=== PATIENT | male | born 1945 | race Caucasian/White ===

== ENCOUNTER → 2016-06-10 | Outpatient (CLI) | payer MEDICARE | END | disposition home or self-care (01) | LOC: LABWHC1 10:41 | PROVIDERS: ATTEND Orthopaedic Surgery Hand Surgery | DX: M65.311 Trigger thumb, right thumb (principal) | CPT/HCPCS: 36415; 93005 ==

== ENCOUNTER 2020-03-09 09:36 | Observation (INO) | payer MEDICARE ==
--- NOTE | 2020-03-09 10:33 | ED ---
Lower Extremity Injury HPI - General Chief Complaint: Extremity Injury, Lower Stated Complaint: toe nail issues, sent from [email or web address] Time Seen by Provider: 03/09/20 09:49 Source: patient Mode of arrival: ambulatory Limitations: no limitations - History of Present Illness Initial Comments: 74-year-old male presenting today for chief complaint of left great toe pain, redness. Patient states that he stubbed his toe approximately week ago however he is dosed increasing redness swelling and pain he is concerned about infection as he is diabetic. Patient denies a fever chills general malaise or uncontrolled blood glucose levels. Patient is no additional complaints upon arrival patient appears well nontoxic however obvious significant redness to the left great toe, partially avulsed left great toenail. - Related Data Home Medications Medication Instructions Recorded Confirmed Aspirin 325 mg PO DAILY 07/31/15 03/09/20 Pravastatin Sodium [Pravachol] 10 mg PO HS 07/31/15 03/09/20 hydrALAZINE HCL [Apresoline] 50 mg PO BID 07/31/15 03/09/20 lisinopriL 40 mg PO DAILY 07/31/15 03/09/20 HYDROcodone/APAP 10-325MG [[place] 1 tab PO TID PRN 03/09/20 03/09/20 10-325] NIFEdipine XL [Procardia Xl] 60 mg PO DAILY 03/09/20 03/09/20 Pioglitazone [Actos] 30 mg PO DAILY 03/09/20 03/09/20 Allergies Allergy/AdvReac Type Severity Reaction Status Date / Time No Known Allergies Allergy Verified 03/09/20 10:46 Review of Systems ROS Statement: Those systems with pertinent positive or pertinent negative responses have been documented in the HPI. ROS Other: All systems not noted in ROS Statement are negative. Past Medical History Past Medical History: Cancer, Diabetes Mellitus, Hyperlipidemia, Hypertension, Sleep Apnea/CPAP/BIPAP Additional Past Medical History / Comment(s): hx. kidney cancer History of Any Multi-Drug Resistant Organisms: None Reported Past Surgical History: Orthopedic Surgery Additional Past Surgical History / Comment(s): nephrectomy, repair fx. left ankle, repair fx. right leg Past Anesthesia/Blood Transfusion Reactions: No Reported Reaction Past Psychological History: No Psychological Hx Reported Smoking Status: Never smoker Past Alcohol Use History: None Reported Past Drug Use History: None Reported General Exam - General Exam Comments Initial Comments: General: The patient is awake and alert, in no distress, and does not appear acutely ill. Eye: Pupils are equal, round and reactive to light, extra-ocular movements are intact. No nystagmus. There is normal conjunctiva bilaterally. No signs of icterus. Cardiovascular: There is a regular rate and rhythm. No murmur, rub or gallop is appreciated. Respiratory: Lungs are clear to auscultation, respirations are non-labored, breath sounds are equal. No wheezes, stridor, rales, or rhonchi. Musculoskeletal: Significant redness warmth to spring proximally towards the foot of the left great toe. There is dried blood around the toenail which is intact however to be easily left partial avulsion no evidence of nail bed laceration Normal ROM, no tenderness. Strength 5/5. Sensation intact. DP pulses equal bilaterally 2+. Neurological: A&O x 3. CN II-XII intact grossly, There are no obvious motor or sensory deficits. Coordination appears grossly intact. Speech is normal. Skin: Skin is warm and dry and no rashes or lesions are noted. Psychiatric: Cooperative, appropriate mood & affect, normal judgment. Limitations: no limitations Course Vital Signs 03/09/20 03/09/20 09:40 12:00 Temperature 98.2 F 98.2 F Pulse Rate 97 88 Respiratory 18 18 Rate Blood Pressure 156/76 134/72 O2 Sat by Pulse 99 97 Oximetry Medical Decision Making - Medical Decision Making XR concerning for recent trauma, consistent with history however significant redness/warmth-increasing since injury concern for developing infection. Patient will be admitted/treated for left great toe/foot cellulitis in a diabetic patient. Patient agreeable to admission. Home meds reconciled, sliding scale place. Dr. Pittman is agreeable to care plan and will speak with patient covering admitting physician. - Lab Data Result diagrams: 03/09/20 11:07 03/09/20 11:07 Lab Results 03/09/20 03/09/20 03/09/20 Range/Units 11:07 11:07 11: WBC 8.5 (3.8-10.6) k/uL RBC 4.91 (4.30-5.90) m/uL Hgb 15.7 (13.0-17.5) gm/dL Hct 48.2 (39.0-53.0) % MCV 98.2 (80.0-100.0) fL MCH 32.0 (25.0-35.0) pg MCHC 32.6 (31.0-37.0) g/dL RDW 12.3 (11.5-15.5) % Plt Count 246 (150-450) k/uL Neutrophils % 77 % Lymphocytes % 13 % Monocytes % 6 % Eosinophils % 2 % Basophils % 1 % Neutrophils # 6.6 (1.3-7.7) k/uL Lymphocytes # 1.1 (1.0-4.8) k/uL Monocytes # 0.5 (0-1.0) k/uL Eosinophils # 0.1 (0-0.7) k/uL Basophils # 0.1 (0-0.2) k/uL Sodium 140 (137-145) mmol/L Potassium 4.0 (3.5-5.1) mmol/L Chloride 106 (98-107) mmol/L Carbon Dioxide 25 (22-30) mmol/L Anion Gap 9 mmol/L BUN 18 (9-20) mg/dL Creatinine 1.21 (0.66-1.25) mg/dL Est GFR (CKD-EPI)AfAm 67 (>60 ml/min/1.73 sqM) Est GFR (CKD-EPI)NonAf 58 (>60 ml/min/1.73 sqM) Glucose 120 H (74-99) mg/dL POC Glucose (mg/dL) (75-99) mg/dL POC Glu Carriage Rider ID Plasma Lactic Acid [place] 1.0 (0.7-2.0) mmol/L Calcium 10.3 H (8.4-10.2) mg/dL Total Bilirubin 0.6 (0.2-1.3) mg/dL AST 31 (17-59) U/L ALT 22 (4-49) U/L Alkaline Phosphatase 104 (38-126) U/L Total Protein 8.3 H (6.3-8.2) g/dL Albumin 5.0 (3.5-5.0) g/dL 03/09/20 Range/Units 12:44 WBC (3.8-10.6) k/uL RBC (4.30-5.90) m/uL Hgb (13.0-17.5) gm/dL Hct (39.0-53.0) % MCV (80.0-100.0) fL MCH (25.0-35.0) pg MCHC (31.0-37.0) g/dL RDW (11.5-15.5) % Plt Count (150-450) k/uL Neutrophils % % Lymphocytes % % Monocytes % % Eosinophils % % Basophils % % Neutrophils # (1.3-7.7) k/uL Lymphocytes # (1.0-4.8) k/uL Monocytes # (0-1.0) k/uL Eosinophils # (0-0.7) k/uL Basophils # (0-0.2) k/uL Sodium (137-145) mmol/L Potassium (3.5-5.1) mmol/L Chloride (98-107) mmol/L Carbon Dioxide (22-30) mmol/L Anion Gap mmol/L BUN (9-20) mg/dL Creatinine (0.66-1.25) mg/dL Est GFR (CKD-EPI)AfAm (>60 ml/min/1.73 sqM) Est GFR (CKD-EPI)NonAf (>60 ml/min/1.73 sqM) Glucose (74-99) mg/dL POC Glucose (mg/dL) 104 H (75-99) mg/dL POC Glu Carriage Rider Neela Novoa Plasma Lactic Acid [place] (0.7-2.0) mmol/L Calcium (8.4-10.2) mg/dL Total Bilirubin (0.2-1.3) mg/dL AST (17-59) U/L ALT (4-49) U/L Alkaline Phosphatase (38-126) U/L Total Protein (6.3-8.2) g/dL Albumin (3.5-5.0) g/dL Disposition Clinical Impression: Cellulitis of foot, Cellulitis of great toe Disposition: ADMITTED IP TO THIS [facility] Condition: Stable Is patient prescribed a controlled substance at d/c from ED?: No Referrals: José Miguel Strickland MD [Primary Care Provider] - 1-2 days Time of Disposition: 13:20 Decision to Admit Reason: Admit from EC Decision Date: 03/09/20 Decision Time: 13:20
--- NOTE | 2020-03-09 11:08 | XR ---
Left foot HISTORY: Nonhealing wound 2 views of left foot There is soft tissue swelling present. Bone mineralization is reduced. Deformity is present at the pr oximal aspect of the proximal phalanx of the fourth digit, correlate for possible history of trauma r emotely. Degenerative changes present at the metatarsophalangeal joint of the first digit. There is a plantar calcaneal spur. Postop changes are noted at the ankle, there is marked secondary osteoarthri tic change. IMPRESSION: Soft tissue swelling, postop changes and additional findings above.
[2020-03-09 11:35] LABS: Basophils # (A) 0.1 k/uL (0-0.2); Basophils % (A) 1 %; Eosinophils # (A) 0.1 k/uL (0-0.7); Eosinophils % (A) 2 %; HCT 48.2 % (39.0-53.0); HGB 15.7 gm/dL (13.0-17.5); Lymphocytes # (A) 1.1 k/uL (1.0-4.8); Lymphocytes % (A) 13 %; MCHC 32.6 g/dL (31.0-37.0); MCV 98.2 fL (80.0-100.0); Mean Platelet Volume 7.7; Monocytes # (A) 0.5 k/uL (0-1.0); Monocytes % (A) 6 %; Neutrophils # (A) 6.6 k/uL (1.3-7.7); Neutrophils % (A) 77 %; Platelet Count 246 k/uL (150-450); RBC 4.91 m/uL (4.30-5.90); RDW 12.3 % (11.5-15.5); WBC 8.5 k/uL (3.8-10.6)
[2020-03-09 11:38] LABS: Calcium 10.3 mg/dL (8.4-10.2); Total Bilirubin 0.6 mg/dL (0.2-1.3); Total Protein 8.3 g/dL (6.3-8.2)
[2020-03-09] MEDS ORDERED: NALOXONE 0.4 MG/ML 1 ML VIAL IV PRN (11:54)
[2020-03-09] MEDS ORDERED: PIPERACILLIN-TAZOBACTAM 3.375 GM in SODIUM CHLORIDE 0.9% 100 ML IVPB STA (12:25)
[2020-03-09] MEDS: INSULIN ASPART (NovoLOG) 100 UNIT/ML VIAL SQ SCH ×3 (12:45→20:38)
[2020-03-09 12:46] LABS: Glucose,Whole Blood 104 mg/dL (75-99)
[2020-03-09 17:26] LABS: Glucose,Whole Blood 92 mg/dL (75-99)
[2020-03-09] MEDS: AMPICILLIN-SULBACTAM 3 GM in SODIUM CHLORIDE 0.9% 100 ML IVPB SCH (18:36)
--- NOTE | 2020-03-09 19:07 | P.HPIM ---
History of Present Illness H&P Date: 03/09/20 Chief Complaint: Severe cellulitis of the left foot, type 2 diabetes, hypert ension and hyper 74-year-old mildly overweight male one of Dr. Strickland's patient with past medical history of type 2 diabetes, hypertension hyperlipidemia is known to have obstructive sleep apnea also has known history of kidney cancer post left sided nephrectomy who presented to the emergency department at [facility] today with complaint of worsening left big toe with drainage around the base of the toenail from an injury have been a week ago according to patient his stump his foot going upstairs developed to have significant pain and discomfort with worsening redness and swelling was using topical antibiotics and dressing on it but become much worse started having more drainage over the last 48 hours. Patient had low-grade temperature his workup demurs whom showed x-ray of the foot soft tiss ue swelling with bone mineralization is reduce deformity is present at the proximal aspect of the proximal phalanx of the fourth digit as for the first digit there is no sign of osteomyelitis. Patient white blood cell was normal. Patient was started on Unasyn IV we'll consult infectious disease admit patient with above problem. Review of Systems CONSTITUTIONAL: Well-developed no acute respiratory distress. EYES: No icterus sclerae, no conjunctivitis. EARS, NOSE, MOUTH, THROAT, and FACE: No sore throat, lymphadenopathy, carotid bruits or deformity. RESPIRATORY: No SOB cough or wheezes. CARDIOVASCULAR: No CP, Palpitation, PND, Orthopnea, or angina. GASTROINTESTINAL: No Abd pain, Nausea or vomiting, no Diarrhea or constipation, No GI Bleed, no distention or masses. GENITOURINARY: Negative for Hematuria or UTI, no kidney stones. INTEGUMENT/BREAST: Negative for any muscular injury with mild osteoarthritis.. HEMATOLOGIC/LYMPHATIC: Negative for bleed or purpura. MUSCULOSKELTAL: Negative for Myalgia or arthralgia. Positive mild infection swelling and discomfort in the left big toe with significant toenail fungus in the right side. NEURLOGICAL: No LOC, Sz or syncope, blurred vision dizziness or abnormality.. BEHAVIORAL/PSYCH: Negative. ENDOCRINE: Negative. Social history: Patient does not smoke, drinks socially is a retired and lives with his is very active for his age use CPAP at home for obstructive sleep apnea diagnosed years ago. Family history: His father dying at age 84 from CAD, mother that 87 from old age, patient has 1 brother was living and well and 2 children with no major medical problem. Past Medical History Past Medical History: Cancer, Diabetes Mellitus, Hyperlipidemia, Hypertension, Sleep Apnea/CPAP/BIPAP Additional Past Medical History / Comment(s): hx. kidney cancer History of Any Multi-Drug Resistant Organisms: None Reported Past Surgical History: Orthopedic Surgery Additional Past Surgical History / Comment(s): left side nephrectomy, repair fx. left ankle, repair fx. right leg Past Anesthesia/Blood Transfusion Reactions: No Reported Reaction Past Psychological History: No Psychological Hx Reported Smoking Status: Never smoker Past Alcohol Use History: None Reported Additional Past Alcohol Use History / Comment(s): quit smoking 2010, smoked on & off "years" Past Drug Use History: None Reported Medications and Allergies Home Medications Medication Instructions Recorded Confirmed Type Aspirin 325 mg PO DAILY 07/31/15 03/09/20 History Pravastatin Sodium [Pravachol] 10 mg PO HS 07/31/15 03/09/20 History hydrALAZINE HCL [Apresoline] 50 mg PO BID 07/31/15 03/09/20 History lisinopriL 40 mg PO DAILY 07/31/15 03/09/20 History HYDROcodone/APAP 10-325MG [[place] 1 tab PO TID PRN 03/09/20 03/09/20 History 10-325] NIFEdipine XL [Procardia Xl] 60 mg PO DAILY 03/09/20 03/09/20 History Pioglitazone [Actos] 30 mg PO DAILY 03/09/20 03/09/20 History Allergies Allergy/AdvReac Type Severity Reaction Status Date / Time No Known Allergies Allergy Verified 03/09/20 10:46 Physical Exam Vitals: Vital Signs Temp Pulse Pulse Resp BP BP Pulse Ox 03/09/20 15:00 18 03/09/20 14:50 98.0 F 72 18 134/74 98 03/09/20 14:00 98.2 F 86 18 136/84 98 03/09/20 13:00 98.3 F 84 18 144/76 97 03/09/20 12:00 98.2 F 88 18 134/72 97 03/09/20 09:40 98.2 F 97 18 156/76 99 Intake and Output 03/09/20 03/09/20 03/09/20 06:59 14:59 22:59 Intake Total 500 Balance 500 Intake: Oral 500 Other: Voiding Method Toilet # Voids 1 Weight 113.398 kg General Appearance: Alert, cooperative, no distress, appears stated age. Overweight Neck HEENT: Supple, no lymphadenopathy, no thyroid enlargement, no carotid bruits. Lungs: Clear to auscultation without crackles or wheezes no rhonchi, no deformity. Chest Wall: Chest wall normal expansion with deep inspiration no tenderness and no deformity was found on exam, no costochondral pain or discomfort. Heart: Regular rate and rhythm, S1, S2 normal, no murmur, rub or gallop. Back: Symmetric, no curvature, ROM normal, no CVA tenderness. Abdomen: Soft, non-tender, bowel sounds active all four quadrants, no masses, no organomegaly. Extremities: Extremities normal, atraumatic, no cyanosis or edema. Left first toe has significant redness swelling irritation and significant drainage with significant pain and discomfort no redness spreading upward had scar tissue from hardware place in the ankle area from previous surgery no lymph node enlargement in the left groin area. Pulses: 2+ and symmetric. Skin: Skin color, texture, tugor normal, no rashes or lesions. Neurologic: Alert oriented x3 cranial nerves II through XII intact, no motor deficit, no abnormal balance or gait. Results CBC & Chem 7: 03/09/20 11:07 03/09/20 11:07 Labs: Abnormal Lab Results - Last 24 Hours (Table) 03/09/20 03/09/20 Range/Units 11:07 12:44 Glucose 120 H (74-99) mg/dL POC Glucose (mg/dL) 104 H (75-99) mg/dL Calcium 10.3 H (8.4-10.2) mg/dL Total Protein 8.3 H (6.3-8.2) g/dL Thrombosis Risk Factor Assmnt - DVT/VTE Prophylaxis DVT/VTE Prophylaxis: Pharmacologic Prophylaxis ordered, Mechanical Prophylaxis ordered - Choose All That Apply Any of the Below Risk Factors Present?: No Other Risk Factors: Yes Each Risk Factor Represents 2 Points: Age 61-74 years Other congenital or acquired thrombophilia - If yes, enter type in comment: No Thrombosis Risk Factor Assessment Total Risk Factor Score: 2 Thrombosis Risk Factor Assessment Level: Low Risk Assessment and Plan Assessment: 1 severe cellulitis of the left big toe: patient was started on Unasyn continue topical care will be seen infectious disease continue current management bedrest for now. 2 type 2 diabetes: On pioglitazone continue patient on Accu-Chek with sliding scales coverage also continue diet control for now. 3 hypertension: Patient has been doing well on hydralazine, lisinopril, nifedipine continue medication. 4 hyperlipidemia: On pravastatin continue medication. 5 running pain syndrome: Has been on hydrocodone on as needed basis. 6 history of kidney cancer: Post surgery doing well and in remission. 7 GI prophylaxis: Will add Pepcid 20 mg daily. 8 DVT prophylaxis: Patient will be on heparin 5000 units obtain his twice a day. CODE STATUS: Full code. Admit patient to inpatient service for more than 2 night stay.
[2020-03-09 20:20] LABS: Glucose,Whole Blood 110 mg/dL (75-99)
[2020-03-09] MEDS: PRAVASTATIN SODIUM 20 MG TAB PO SCH (20:43)
[2020-03-09] MEDS: HYDROcodone/APAP 10-325MG 1 EACH TAB PO PRN (20:44)
[2020-03-09] MEDS: hydrALAZINE HCL 50 MG TAB PO SCH (20:44)
[2020-03-09] MEDS: HEPARIN SODIUM,PORCINE 5,000 UNIT/ML 1 ML VIAL SQ SCH (20:44)
--- NOTE | 2020-03-09 23:45 | P.CONS ---
History of Present Illness - Reason for Consult Consult date: 03/09/20 Left big toe cellulitis Requesting physician: Harrison Cotton - Chief Complaint Left big toe pain swelling redness x 7 days - History of Present Illness Patient is a 74 year male with a past medical history significant for diabetes mellitus presenting to the ER with chief complaints of left big toe pain redness and some foul-smelling patient mentioned about a week ago he stubbed his toe since then he noticed to have significant swelling and some dried blood around the nail margin the swelling and the redness persisted however the pain slightly decreased in intensity on negative more of a dull aching at times throbbing pain intensity 6-7 out of 10 and no radiation patient noticed some foul-smelling from his toe but no purulent drainage that is concerned him hence he presented to [facility] ER on arrival to the ER the patient was afebrile, patient did have a normal white count x-rays of the toe did show some soft tissue swelling but no bony changes patient received a dose of Zosyn in the ER subsequently the patient has been admitted to the [facility] and infectious disease was consulted for further management of antibiotic therapy Review of Systems Positive point has been mentioned in the HPI rest of the systems are negative Past Medical History Past Medical History: Cancer, Diabetes Mellitus, Hyperlipidemia, Hypertension, Sleep Apnea/CPAP/BIPAP Additional Past Medical History / Comment(s): hx. kidney cancer History of Any Multi-Drug Resistant Organisms: None Reported Past Surgical History: Orthopedic Surgery Additional Past Surgical History / Comment(s): left side nephrectomy, repair fx. left ankle, repair fx. right leg Past Anesthesia/Blood Transfusion Reactions: No Reported Reaction Past Psychological History: No Psychological Hx Reported Smoking Status: Never smoker Past Alcohol Use History: None Reported Additional Past Alcohol Use History / Comment(s): quit smoking 2010, smoked on & off "years" Past Drug Use History: None Reported Medications and Allergies Home Medications Medication Instructions Recorded Confirmed Type Aspirin 325 mg PO DAILY 07/31/15 03/09/20 History Pravastatin Sodium [Pravachol] 10 mg PO HS 07/31/15 03/09/20 History hydrALAZINE HCL [Apresoline] 50 mg PO BID 07/31/15 03/09/20 History lisinopriL 40 mg PO DAILY 07/31/15 03/09/20 History HYDROcodone/APAP 10-325MG [[place] 1 tab PO TID PRN 03/09/20 03/09/20 History 10-325] NIFEdipine XL [Procardia Xl] 60 mg PO DAILY 03/09/20 03/09/20 History Pioglitazone [Actos] 30 mg PO DAILY 03/09/20 03/09/20 History Allergies Allergy/AdvReac Type Severity Reaction Status Date / Time No Known Allergies Allergy Verified 03/09/20 10:46 Physical Exam Vitals: Vital Signs Temp Pulse Pulse Resp BP BP Pulse Ox 03/09/20 15:00 18 03/09/20 14:50 98.0 F 72 18 134/74 98 03/09/20 14:00 98.2 F 86 18 136/84 98 03/09/20 13:00 98.3 F 84 18 144/76 97 03/09/20 12:00 98.2 F 88 18 134/72 97 03/09/20 09:40 98.2 F 97 18 156/76 99 Intake and Output 03/09/20 03/09/20 03/09/20 06:59 14:59 22:59 Other: Voiding Method Toilet # Voids 1 Weight 113.398 kg GENERAL DESCRIPTION: An elderly male lying in bed, no distress. No tachypnea or accessory muscle of respiration use. HEENT: Shows Pallor , no scleral icterus. Oral mucous membrane is dry. No pharyngeal erythema or thrush NECK: Trachea central, no thyromegaly. LUNGS: Unlabored breathing. Clear to auscultation anteriorly. No wheeze or c rackle. HEART: S1, S2, regular rate and rhythm. No loud murmur ABDOMEN: Soft, no tenderness , guarding or rigidity, no organomegaly EXTREMITIES: Left big toe did have swelling redness with some dried blood on the nailbed no foul-smelling drainage. SKIN: No rash, no masses palpable. NEUROLOGICAL: The patient is awake, alert, oriented x3, mood and affect normal. Results CBC & Chem 7: 03/09/20 11:07 03/09/20 11:07 Labs: Abnormal Lab Results - Last 24 Hours (Table) 03/09/20 03/09/20 Range/Units 11:07 12:44 Glucose 120 H (74-99) mg/dL POC Glucose (mg/dL) 104 H (75-99) mg/dL Calcium 10.3 H (8.4-10.2) mg/dL Total Protein 8.3 H (6.3-8.2) g/dL Assessment and Plan Assessment: 1- patient with a left diabetic foot infection in this patient who did have traumatic injury to the left big toe about a week ago with significant swelling and redness were to call for the gram-positive as well as gram-negative pathogens like responsible for the cellulitis clinically suspicion low of underlying abscess (1) Diabetic infection of left foot Current Visit: Yes Status: Acute Code(s): E11.628 - TYPE 2 DIABETES MELLITUS WITH OTHER SKIN COMPLICATIONS; L08.9 - LOCAL INFECTION OF THE SKIN AND SUBCUTANEOUS TISSUE, UNSP SNOMED Code(s): 37923424 (2) Cellulitis of great toe Current Visit: Yes Status: Acute Code(s): L03.039 - CELLULITIS OF UNSPEC IFIED TOE SNOMED Code(s): 80614006 Plan: 1- Unasyn 3 g every 6 hours will be started 2- local cultures will be obtained if the area started to drain We will follow on clinical condition and cultures to further adjust medication if needed Thank you for this consultation will follow this patient with you Time with Patient: Greater than 30
[2020-03-10] MEDS: AMPICILLIN-SULBACTAM 3 GM in SODIUM CHLORIDE 0.9% 100 ML IVPB SCH ×5 (00:28→23:33)
[2020-03-10 06:22] LABS: Glucose,Whole Blood 107 mg/dL (75-99)
[2020-03-10 07:23] LABS: Basophils % (A) 0 %; Eosinophils # (A) 0.2 k/uL (0-0.7); Eosinophils % (A) 3 %; HCT 41.8 % (39.0-53.0); HGB 13.7 gm/dL (13.0-17.5); Lymphocytes # (A) 1.1 k/uL (1.0-4.8); Lymphocytes % (A) 15 %; MCH 32.1 pg (25.0-35.0); MCHC 32.7 g/dL (31.0-37.0); MCV 98.2 fL (80.0-100.0); Mean Platelet Volume 8.5; Monocytes # (A) 0.6 k/uL (0-1.0); Monocytes % (A) 8 %; Neutrophils # (A) 5.7 k/uL (1.3-7.7); Neutrophils % (A) 74 %; Platelet Count 211 k/uL (150-450); RBC 4.26 m/uL (4.30-5.90); RDW 12.7 % (11.5-15.5); WBC 7.7 k/uL (3.8-10.6)
[2020-03-10] MEDS: INSULIN ASPART (NovoLOG) 100 UNIT/ML VIAL SQ SCH ×4 (08:18→20:43)
[2020-03-10] MEDS: HEPARIN SODIUM,PORCINE 5,000 UNIT/ML 1 ML VIAL SQ SCH ×2 (08:18→21:18)
[2020-03-10] MEDS: FAMOTIDINE 20 MG TAB PO SCH (08:18)
[2020-03-10] MEDS: PIOGLITAZONE 30 MG TAB PO SCH (08:18)
[2020-03-10] MEDS: lisinopriL 20 MG TAB PO SCH (08:18)
[2020-03-10] MEDS: ASPIRIN 325 MG TAB PO SCH (08:18)
[2020-03-10] MEDS: hydrALAZINE HCL 50 MG TAB PO SCH ×2 (08:18→21:18)
--- NOTE | 2020-03-10 09:55 | P.PN ---
Subjective Progress Note Date: 03/10/20 74-year-old mildly overweight male one of Dr. Strickland's patient with past medical history of type 2 diabetes, hypertension hyperlipidemia is known to have obstructive sleep apnea also has known history of kidney cancer post left sided nephrectomy who presented to the emergency department at [facility] today with complaint of worsening left big toe with drainage around the base of the toenail from an injury have been a week ago according to patient his stump his foot going upstairs developed to have significant pain and discomfort with worsening redness and swelling was using topical antibiotics and dressing on it but become much worse started having more drainage over the last 48 hours. Patient had low-grade temperature his workup demurs whom showed x-ray of the foot soft tissue swelling with bone mineralization is reduce deformity is present at the proximal aspect of the proximal phalanx of the fourth digit as for the first digit there is no sign of osteomyelitis. Patient white blood cell was normal. Patient was started on Unasyn IV we'll consult infectious disease admit patient with above problem. 03/10: Patient is found sitting up in chair with no complaints and in no acute distress. Patient is currently on IV antibiotics was seen by Dr. Escobar to continue on Unasyn. Left great toe continues to show erythema induration and warmth to touch. No trouble singular last drainage to the nail. No open ulcerations. Diabetes is well managed. Patient is concerned about his car in the parking lot. X-ray shows no osteomyelitis. We will continue with IV antibiotics for at least one more day possibly to possibly home tomorrow if the erythema and induration lessens. WBC is 7.7, hemoglobin 13.7, Review of systems CONSTITUTIONAL: Well-developed no acute respiratory distress. EYES: No icterus sclerae, no conjunctivitis. EARS, NOSE, MOUTH, THROAT, and FACE: No sore throat, lymphadenopathy, carotid bruits or deformity. RESPIRATORY: No SOB cough or wheezes. CARDIOVASCULAR: No CP, Palpitation, PND, Orthopnea, or angina. GASTROINTESTINAL: No Abd pain, Nausea or vomiting, no Diarrhea or constipation, No GI Bleed, no distention or masses. GENITOURINARY: Negative for Hematuria or UTI, no kidney stones. INTEGUMENT/BREAST: Negative for any muscular injury with mild osteoarthritis.. HEMATOLOGIC/LYMPHATIC: Negative for bleed or purpura. MUSCULOSKELTAL: Negative for Myalgia or arthralgia. Positive mild infection swelling and discomfort in the left big toe with significant toenail fungus in the right side. NEURLOGICAL: No LOC, Sz or syncope, blurred vision dizziness or abnormality.. BEHAVIORAL/PSYCH: Negative. ENDOCRINE: Negative. Physical exam: General Appearance: Alert, cooperative, no distress, appears stated age. Overweight Neck HEENT: Supple, no lymphadenopathy, no thyroid enlargement, no carotid bruits. Lungs: Clear to auscultation without crackles or wheezes no rhonchi, no deformit y. Chest Wall: Chest wall normal expansion with deep inspiration no tenderness and no deformity was found on exam, no costochondral pain or discomfort. Heart: Regular rate and rhythm, S1, S2 normal, no murmur, rub or gallop. Back: Symmetric, no curvature, ROM normal, no CVA tenderness. Abdomen: Soft, non-tender, bowel sounds active all four quadrants, no masses, no organomegaly. Extremities: Extremities normal, atraumatic, no cyanosis or edema. Left first toe has significant redness swelling irritation and significant drainage with significant pain and discomfort no redness spreading upward had scar tissue from hardware place in the ankle area from previous surgery no lymph node enlargement in the left groin area. Pulses: 2+ and symmetric. Skin: Skin color, texture, tugor normal, no rashes or lesions. Neurologic: Alert oriented x3 cranial nerves II through XII intact, no motor deficit, no abnormal balance or gait. Assessment/Plan: 1 severe cellulitis of the left big toe: patient was started on Unasyn Silvadene to the left great toe wrap with rolled gauze. Infectious disease consult appreciated. Minimal angulation with nonweightbearing to the left forefoot. 2 type 2 diabetes: On pioglitazone continue patient on Accu-Chek with sliding scales coverage also continue diet control for now. 3 hypertension: Patient has been doing well on hydralazine, lisinopril, nifedipine continue medication. 4 hyperlipidemia: On pravastatin continue medication. 5 running pain syndrome: Has been on hydrocodone on as needed basis. 6 history of kidney cancer: Post surgery doing well and in remission. 7 GI prophylaxis: Will add Pepcid 20 mg daily. 8 DVT prophylaxis: Patient will be on heparin 5000 units obtain his twice a day. CODE STATUS: Full code. Admit patient to inpatient service for more than 2 night stay. Impression and plan of care have been directed as dictated by the signing physician. Jaqui Prieto nurse practitioner acting as scribe for signing physician. Objective - Vital Signs Vital signs: Vital Signs Temp 97.8 F 03/10/20 08:38 Pulse 78 03/10/20 08:38 Resp 14 03/10/20 08:38 BP 119/64 03/10/20 08:38 Pulse Ox 97 03/10/20 08:38 Intake & Output 03/09/20 03/10/20 03/10/20 18:59 06:59 18:59 Intake Total 500 1180 Output Total 1025 Balance 500 155 Weight 113.398 kg Intake: Intake, IV Titration 100 Amount Ampicillin-Sulbactam 3 gm 100 In Sodium Chloride 0.9% 100 ml @ 200 mls/hr IVPB Q6HR [facility] Rx#:[id number] Oral 500 1080 Output: Urine 1025 Other: Voiding Method Toilet Toilet Toilet Urinal Urinal # Voids 1 - Labs CBC & Chem 7: 03/10/20 07:06 03/09/20 11:07 Labs: Abnormal Lab Results - Last 24 Hours (Table) 03/09/20 03/09/20 03/09/20 Range/Units 11:07 12:44 20:18 RBC (4.30-5.90) m/uL Glucose 120 H (74-99) mg/dL POC Glucose (mg/dL) 104 H 110 H (75-99) mg/dL Calcium 10.3 H (8.4-10.2) mg/dL Total Protein 8.3 H (6.3-8.2) g/dL 03/10/20 03/10/20 Range/Units 06:21 07:06 RBC 4.26 L (4.30-5.90) m/uL Glucose (74-99) mg/dL POC Glucose (mg/dL) 107 H (75-99) mg/dL Calcium (8.4-10.2) mg/dL Total Protein (6.3-8.2) g/dL
[2020-03-10 10:19] LABS: Erythrocyte Sedimentation Rate 28 mm/hr (0-15)
[2020-03-10 11:34] LABS: Glucose,Whole Blood 78 mg/dL (75-99)
[2020-03-10 16:39] LABS: Glucose,Whole Blood 118 mg/dL (75-99)
[2020-03-10 20:43] LABS: Glucose,Whole Blood 118 mg/dL (75-99)
[2020-03-10] MEDS: PRAVASTATIN SODIUM 20 MG TAB PO SCH (21:18)
[2020-03-10] MEDS: HYDROcodone/APAP 10-325MG 1 EACH TAB PO PRN (21:18)
--- NOTE | 2020-03-10 22:37 | PN ---
PROGRESS NOTE DATE OF SERVICE: 03/10/2020 REASON FOR FOLLOWUP: Left big toe diabetic foot infection and cellulitis. INTERVAL HISTORY: Patient is currently afebrile. He is breathing comfortably. Denies having any chest pain. No shortness of breath or cough. No nausea, vomiting. No abdominal pain. No pain to the left big toe. Overall swelling is slightly decreased. PHYSICAL EXAMINATION: Blood pressure 124/72 with a pulse of 64, temperature 98.4. He is 98% on room air. General description is an elderly male up in the bed in no distress. Respiratory system: Unlabored breathing, clear to auscultation anteriorly. Heart S1, S2. Regular rate and rhythm. Abdomen soft, no tenderness. LABS: Hemoglobin 13.1, white count 7.7, ( ) 28, ( ) 7.4. Blood culture negative. IMPRESSION/PLAN: Patient with left big toe diabetic foot infection and cellulitis with no evidence of any abscess clinically. The patient is currently covered with Unasyn, to continue while waiting for ( ). Continue supportive care negative patient. MMODL / IJN: [id number] /
[2020-03-11 02:34] VITALS: RESP 17
[2020-03-11] MEDS: AMPICILLIN-SULBACTAM 3 GM in SODIUM CHLORIDE 0.9% 100 ML IVPB SCH (06:11)
[2020-03-11 06:12] LABS: Glucose,Whole Blood 93 mg/dL (75-99)
[2020-03-11] MEDS: INSULIN ASPART (NovoLOG) 100 UNIT/ML VIAL SQ SCH (08:18)
[2020-03-11 08:20] LABS: Basophils # (A) 0.1 k/uL (0-0.2); Basophils % (A) 1 %; Eosinophils # (A) 0.3 k/uL (0-0.7); Eosinophils % (A) 3 %; HCT 45.8 % (39.0-53.0); HGB 14.6 gm/dL (13.0-17.5); Lymphocytes # (A) 1.2 k/uL (1.0-4.8); Lymphocytes % (A) 15 %; MCH 31.4 pg (25.0-35.0); MCHC 31.8 g/dL (31.0-37.0); MCV 98.6 fL (80.0-100.0); Mean Platelet Volume 7.7; Monocytes # (A) 0.5 k/uL (0-1.0); Monocytes % (A) 7 %; Neutrophils # (A) 5.9 k/uL (1.3-7.7); Neutrophils % (A) 73 %; Platelet Count 232 k/uL (150-450); RBC 4.64 m/uL (4.30-5.90); RDW 12.3 % (11.5-15.5)
[2020-03-11 08:21] VITALS: BP 123/65; PULSE 85; TEMP 98.3
[2020-03-11] MEDS: PIOGLITAZONE 30 MG TAB PO SCH (08:22)
[2020-03-11] MEDS: FAMOTIDINE 20 MG TAB PO SCH (08:22)
[2020-03-11] MEDS: ASPIRIN 325 MG TAB PO SCH (08:22)
[2020-03-11] MEDS: HEPARIN SODIUM,PORCINE 5,000 UNIT/ML 1 ML VIAL SQ SCH (08:22)
[2020-03-11] MEDS: hydrALAZINE HCL 50 MG TAB PO SCH (08:23)
[2020-03-11] MEDS: lisinopriL 20 MG TAB PO SCH (08:23)
[2020-03-11] MEDS ORDERED: INFLUENZA VACCINE (6 MOS+) 60 MCG/0.5 ML SYRINGE IM ONE (09:16)
[2020-03-11] MEDS ORDERED: DIPH,PERTUS(ACELL)TETVAC-LF 0.5 ML VIAL IM ONE (09:17)
--- NOTE | 2020-03-11 10:19 | P.DS ---
Providers Date of admission: 03/09/20 14:12 Attending physician: Harrison Cotton Consults: 03/09/20 14:12 Consult Physician Urgent Consulting Provider: Jarred Escobar Consult Reason/Comments: Infected toe Do you want consulting provider notified?: Yes Primary care physician: José Miguel Strickland [facility] Course: 74-year-old mildly overweight male one of Dr. Strickland's patient with past medical history of type 2 diabetes, hypertension hyperlipidemia is known to have obstructive sleep apnea also has known history of kidney cancer post left sided nephrectomy who presented to the emergency department at [facility] today with complaint of worsening left big toe with drainage around the base of the toenail from an injury have been a week ago according to patient his stump his foot going upstairs developed to have significant pain and discomfort with worsening redness and swelling was using topical antibiotics and dressing on it but become much worse started having more drainage over the last 48 hours. Patient had low-grade temperature his workup demurs whom showed x-ray of the foot soft tissue swelling with bone mineralization is reduce deformity is present at the proximal aspect of the proximal phalanx of the fourth digit as for the first digit there is no sign of osteomyelitis. Patient white blood cell was normal. Patient was started on Unasyn IV we'll consult infectious disease admit patient with above problem. 03/10: Patient is found sitting up in chair with no complaints and in no acute distress. Patient is currently on IV antibiotics was seen by Dr. Escobar to continue on Unasyn. Left great toe continues to show erythema induration and warmth to touch. No trouble singular last drainage to the nail. No open ulcerations. Diabetes is well managed. Patient is concerned about his car in the parking lot. X-ray shows no osteomyelitis. We will continue with IV antibiotics for at least one more day possibly to possibly home tomorrow if the erythema and induration lessens. WBC is 7.7, hemoglobin 13.7, 03/11: Patient found sitting outside his bed in no acute distress. Patient continues to go home. Patient states that the foot is improving. Patient was instructed to see his primary care physician however patient states that he is unable to get into his primary care physician and is very unhappy. He was instructed that if he is unable to make appointment with Dr. Strickland he may see Dr. Cotton for one visit to assess the toe. Patient verbalized understanding and was agreeable. Discharge diagnosis: 1 severe cellulitis of the left big toe: 2 type 2 diabetes: 3 hypertension: 4 hyperlipidemia: 5 running pain syndrome: 6 history of kidney cancer: Discharge disposition: Home with self-care Impression and plan of care have been directed as dictated by the signing physician. Jaqui Prieto nurse practitioner acting as scribe for signing physician. Cc: Dr. Strickland Patient Condition at Discharge: Stable Plan - Discharge Summary Discharge Rx Participant: Yes New Discharge Prescriptions: New Cephalexin [Keflex] 500 mg PO Q6HR 10 Days #40 cap SILVER sulfADIAZINE CREAM [Silvadene Cream] 1 applic TOPICAL DAILY #1 applic Continue Pravastatin Sodium [Pravachol] 10 mg PO HS lisinopriL 40 mg PO DAILY Aspirin 325 mg PO DAILY hydrALAZINE HCL [Apresoline] 50 mg PO BID HYDROcodone/APAP 10-325MG [Seiling 10-325] 1 tab PO TID PRN PRN Reason: Pain NIFEdipine XL [Procardia XL] 60 mg PO DAILY Pioglitazone [Actos] 30 mg PO DAILY Discharge Medication List Aspirin 325 mg PO DAILY 07/31/15 [History] Pravastatin Sodium [Pravachol] 10 mg PO HS 07/31/15 [History] hydrALAZINE HCL [Apresoline] 50 mg PO BID 07/31/15 [History] lisinopriL 40 mg PO DAILY 07/31/15 [History] HYDROcodone/APAP 10-325MG [[place]iling 10-325] 1 tab PO TID PRN 03/09/20 [History] NIFEdipine XL [Procardia XL] 60 mg PO DAILY 03/09/20 [History] Pioglitazone [Actos] 30 mg PO DAILY 03/09/20 [History] Cephalexin [Keflex] 500 mg PO Q6HR 10 Days #40 cap 03/11/20 [Rx] SILVER sulfADIAZINE CREAM [Silvadene Cream] 1 applic TOPICAL DAILY #1 applic 03/11/20 [Rx] Follow up Appointment(s)/Referral(s): Harrison Cotton MD [Medical Doctor] - As Needed (if unable to get into Dr. Strickland) José Miguel Strickland MD [Primary Care Provider] - 1-2 days Patient Instructions/Handouts: Cellulitis (DC) Activity/Diet/Wound Care/Special Instructions: left great toe- silvedene DAILY Change socks daily activity as tolerated consistent carb diet
== END 2020-03-11 10:40 | disposition home or self-care (01) ==
LOC: EC 09:36 → 1SOBS 14:12
PROVIDERS: ADMIT Internal Medicine Geriatric Medicine; ATTEND Internal Medicine Geriatric Medicine
DX: E11.628 Type 2 diabetes mellitus with other skin complications (principal); L03.032 Cellulitis of left toe; S99.822A Other specified injuries of left foot, initial encounter; W22.8XXA Striking against or struck by other objects, initial encounter; E78.5 Hyperlipidemia, unspecified; I10 Essential (primary) hypertension; G47.33 Obstructive sleep apnea (adult) (pediatric); Z99.89 Dependence on other enabling machines and devices; Z87.891 Personal history of nicotine dependence; M22.2X9 Patellofemoral disorders, unspecified knee; Z85.528 Personal history of other malignant neoplasm of kidney; E66.3 Overweight; Z68.33 Body mass index [BMI] 33.0-33.9, adult; Z90.5 Acquired absence of kidney; Z98.890 Other specified postprocedural states; Z79.84 Long term (current) use of oral hypoglycemic drugs; Z79.82 Long term (current) use of aspirin; Z79.891 Long term (current) use of opiate analgesic; Z79.899 Other long term (current) drug therapy; Z82.49 Family history of ischemic heart disease and other diseases of the circulatory system
CPT/HCPCS: 90471; 96366 ×2; 96367; 96372 ×3; 96365; 99284; 36415; 80053; 85652; 83605; 85025 ×3; 86140; 87040; 73620; 90715; 90686; G0378 ×3; G0008; J2543; J1644 ×3; J0295 ×3

== ENCOUNTER → 2022-09-15 | Outpatient (CLI) | payer MEDICARE ==
--- NOTE | 2022-09-15 21:58 | CT ---
EXAMINATION TYPE: CT chest wo con DATE OF EXAM: 09/15/2022 COMPARISON: Chest x-ray 09/04/2022 HISTORY: Dyspnea. CT DLP: 2286 mGycm, Automated exposure control for dose reduction was used. CONTRAST: None TECHNIQUE: Axial images were obtained at 1 mm thick sections at 10 mm intervals. This will limit po rtions of the examination which may not be visualized within the [id number]. Images were obtained in the prone and supine views. Supine inspiration and expiration views were obtained. FINDINGS: Portion of the thyroid visualized is normal. There is peripheral pleural-based calcification. This measures 0.4 cm. Series 8 image 87 some mild gr oundglass opacities in the anterior left lung. Series 8 image 90. No significant interval change between prone and supine views are recommended No enlarged mediastinal or hilar adenopathy is evident. The ascending aorta diameter at the level o f the main pulmonary artery is 3.9 cm. The main pulmonary artery diameter at the bifurcation is 3.0 cm. Mild coronary artery calcification is present. Limited CT sections are obtained through the upper abdomen. There has been a prior left nephrectomy. IMPRESSIONS: 1. Tiny peripheral or pleural-based calcification right upper lung field is nonspecific. 2. Mild groundglass opacity anterior left upper lung field. 3. No significant changes between positions in inspiration or expiration.
== END | disposition home or self-care (01) ==
LOC: RADCTMAIN 11:34
PROVIDERS: ATTEND Internal Medicine
DX: R91.8 Other nonspecific abnormal finding of lung field (principal); R06.09 Other forms of dyspnea
CPT/HCPCS: 71250

== ENCOUNTER 2023-10-25 19:23 | Emergency (ER) | payer MEDICARE ==
[2023-10-25 19:44] VITALS: TEMP 98
--- NOTE | 2023-10-25 19:52 | ED ---
Lower Extremity Injury HPI - General Chief Complaint: Extremity Injury, Lower Stated Complaint: R ankle pain Time Seen by Provider: 10/25/23 19:33 Source: patient, EMS, RN notes reviewed, old records reviewed Mode of arrival: EMS Limitations: physical limitation - History of Present Illness Initial Comments: This is a 78-year-old male to the ER for evaluation of severe right leg pain right ankle pain right lower extremity pain after a fall. Patient states he was walking and he folic his leg gave way sending him to the ground with inability to bear weight EMS brings patient in with right leg splinted here in the emergency department MD Complaint: leg injury, ankle injury, fall -: hour(s) Injury: Leg: Right, Ankle: Right Type of Injury: blunt Place: home Severity: severe Severity scale (1-10): 10 Worsens With: nothing Context: fall Associated Symptoms: snap/pop sensation, swelling, unable to bear weight Treatments Prior to Arrival: other (0) - Related Data Home Medications Medication Instructions Recorded Confirmed Aspirin 81 mg PO DAILY 07/31/15 07/28/22 Pravastatin Sodium [Pravachol] 10 mg PO HS 07/31/15 07/28/22 hydrALAZINE HCL [Apresoline] 50 mg PO BID 07/31/15 07/28/22 lisinopriL 40 mg PO DAILY 07/31/15 07/28/22 Pioglitazone [Actos] 30 mg PO DAILY 03/09/20 07/28/22 Calcium/D3/Zinc/Copper/Jose Alberto 1 each PO DAILY 07/24/22 07/28/22 [Citracal-D3 Maximum Plus Caplt] Cholecalciferol [Vitamin D3 (25 25 mcg PO DAILY 07/24/22 07/28/22 Mcg = 1000 Iu)] Doxycycline Hyclate 100 mg PO DAILY 07/24/22 07/28/22 Gabapentin [Neurontin] 100 mg PO MOTHSA 07/24/22 07/28/22 HYDROcodone/APAP 10-325MG [Vest 1 tab PO Q4-6H PRN 07/24/22 07/28/22 10-325] Multivitamins, Thera [Multivitamin 1 tab PO DAILY 07/24/22 07/28/22 (formulary)] Zinc Gluconate [Zinc] 50 mg PO DAILY 07/24/22 07/28/22 amLODIPine 10 mg PO DAILY 07/24/22 07/28/22 carvediloL [Coreg] 3.125 mg PO BID 07/24/22 07/28/22 Allergies Allergy/AdvReac Type Severity Reaction Status Date / Time No Known Allergies Allergy Verified 10/25/23 19:25 Review of Systems ROS Statement: Those systems with pertinent positive or pertinent negative responses have been documented in the HPI. ROS Other: All systems not noted in ROS Statement are negative. Past Medical History Past Medical History: Cancer, Diabetes Mellitus, Hyperlipidemia, Hypertension, Renal Disease, Sleep Apnea/CPAP/BIPAP Additional Past Medical History / Comment(s): hx. kidney cancer, uses cpap, History of Any Multi-Drug Resistant Organisms: None Reported Past Surgical History: Orthopedic Surgery Additional Past Surgical History / Comment(s): left side nephrectomy, repair fx. left ankle, repair fx. right leg Past Anesthesia/Blood Transfusion Reactions: No Reported Reaction Past Psychological History: No Psychological Hx Reported Smoking Status: Former smoker Past Alcohol Use History: Occasional Past Drug Use History: None Reported General Exam - General Exam Comments Initial Comments: Right foot and ankle externally rotated, positive palpable dorsalis pedis pulse Limitations: physical limitation General appearance: alert, in no apparent distress Head exam: Present: atraumatic, normocephalic, normal inspection Eye exam: Present: normal appearance, PERRL, EOMI. Absent: scleral icterus, conjunctival injection, periorbital swelling ENT exam: Present: normal exam, mucous membranes moist Neck exam: Present: normal inspection. Absent: tenderness, meningismus, lymphadenopathy Respiratory exam: Present: normal lung sounds bilaterally. Absent: respiratory distress, wheezes, rales, rhonchi, stridor Cardiovascular Exam: Present: regular rate, normal rhythm, normal heart sounds. Absent: systolic murmur, diastolic murmur, rubs, gallop, clicks GI/Abdominal exam: Present: soft, normal bowel sounds. Absent: distended, tenderness, guarding, rebound, rigid Extremities exam: Present: normal inspection, full ROM, normal capillary refill. Absent: tenderness, pedal edema, joint swelling, calf tenderness Back exam: Present: normal inspection Neurological exam: Present: alert, oriented X3, CN II-XII intact Psychiatric exam: Present: normal affect, normal mood Skin exam: Present: warm, dry, intact, normal color. Absent: rash Course Vital Signs 10/25/23 10/25/23 19:25 22:23 Temperature 98.0 F Pulse Rate 79 75 Respiratory 22 16 Rate Blood Pressure 106/64 106/62 O2 Sat by Pulse 92 L 94 L Oximetry - Reevaluation(s) Reevaluation #1: 10/25/23 20:39 Records reviewed Reevaluation #2: 10/25/23 20:39 Patient's pain is well-controlled currently after splinting Reevaluation #3: 10/25/23 20:40 Patient informed of results questions answered Reevaluation #4: 10/25/23 20:40 Was pt. sent in by a medical professional or institution (, [facility], LADIES SUIT OPERATOR, urgent care, hospital, or long-term...) When possible be specific @ -no Did you speak to anyone other than the patient for history (EMS, parent, family, police, friend...)? What history was obtained from this source @ -no Did you review nursing and triage notes (agree or disagree)? Why? @ -agree Are old charts reviewed (outside hosp., previous admission, EMS record, old EKG, old radiological studies, urgent care reports/EKG's, long-term records)? Report findings @ -yes Differential Diagnosis (chest pain, altered mental status, abdominal pain women, abdominal pain men, vaginal bleeding, weakness, fever, dyspnea, syncope, headache, dizziness, GI bleed, back pain, seizure, CVA, palpatations, mental health, musculoskeletal)? @ -prior EKG interpreted by me (3pts min.). @ -yes X-rays interpreted by me (1pt min.). @ -yes positive for significant tibia-fibula fracture CT interpreted by me (1pt min.). @ -no U/S interpreted by me (1pt. min.). @ -no What testing was considered but not performed or refused? (CT, X-rays, U/S, labs)? Why? @ -none What meds were considered but not given or refused? Why? @ -none Did you discuss the management of the patient with other professionals (professionals i.e. [facility] Brian, LADIES SUIT OPERATOR, lab, RT, psych nurse, 7th grade social studies teacher, bi lead, teacher, electorate officer, bottle caser)? Give summary @ -no Was smoking cessation discussed for >3mins.? @ -no Was critical care preformed (if so, how long)? @ -no Were there social determinants of health that impacted care today? How? (Homelessness, low income, unemployed, alcoholism, drug addiction, transportation, low edu. Level, literacy, decrease access to med. care, [facility], rehab)? @ -none Was there de-escalation of care discussed even if they declined (Discuss DNR or withdrawal of care, Hospice)? DNR status @ -no What co-morbidities impacted this encounter? (DM, HTN, Smoking, COPD, CAD, Cancer, CVA, ARF, Chemo, Hep., AIDS, mental health diagnosis, sleep apnea, morbid obesity)? @ -none Was patient admitted / discharged? Hospital course, mention meds given and route, prescriptions, significant lab abnormalities, going to OR and other pertinent info. @ - 78 male after this trip and fall. Fell to the ground with no other traumatic injury severe right lower extremity pain, patient does have a postoperative hardware fracture of prior tibial fracture. Patient splinted here in the ER and will be transferred to [facility] for surgical evaluation Transferred to [facility] Admitted Undiagnosed new problem with uncertain prognosis? @ -no Drug Therapy requiring intensive monitoring for toxicity (Heparin, Nitro, Insulin, Cardizem)? @ -no Were any procedures done? @ -no Diagnosis/symptom? @ -Tib-fib fracture Acute, or Chronic, or Acute on Chronic? @ -Acute Uncomplicated (without systemic symptoms) or Complicated (systemic symptoms)? @ -Complicated Side effects of treatment? @ -no Exacerbation, Progression, or Severe Exacerbation? @ -exacerbation Poses a threat to life or bodily function? How? (Chest pain, [place], [place], pneumonia, PE, COPD, DKA, ARF, appy, cholecystitis, CVA, Diverticulitis, Homicidal, Suicidal, threat to staff... and all critical care pts) @ -yes significant extremes of age - Consultations Consultation #1: Spoke with [facility], they do accept transfer Procedures - Orthopedic Fracture Reduction Fracture #1 Consent Obtained: verbal consent Side: right Fracture Reduction Location: tibia, fibula Technique: direct manipulation, traction/counter-traction Post Reduction X-rays Demonstrate: acceptable reduction Post-Reduction Neuro Exam: intact Post-Reduction Vascular Exam: intact Splint Applied: Yes Patient Tolerated Procedure: well Medical Decision Making - Medical Decision Making 78 male after this trip and fall. Fell to the ground with no other traumatic injury severe right lower extremity pain, patient does have a postoperative hardware fracture of prior tibial fracture. Patient splinted here in the ER and will be transferred to [facility] for surgical evaluation - Lab Data Result diagrams: 10/25/23 20:55 10/25/23 20:55 Lab Results 10/25/23 10/25/23 10/25/23 Range/Units 20:55 20:55 20:55 WBC 8.2 (3.8-10.6) k/uL RBC 3.77 L (4.30-5.90) m/uL Hgb 12.4 L (13.0-17.5) gm/dL Hct 38.3 L (39.0-53.0) % MCV 101.6 H (80.0-100.0) fL MCH 32.8 (25.0-35.0) pg MCHC 32.3 (31.0-37.0) g/dL RDW 12.8 (11.5-15.5) % Plt Count 171 (150-450) k/uL MPV 8.7 Neutrophils % 72 % Lymphocytes % 15 % Monocytes % 6 % Eosinophils % 4 % Basophils % 1 % Neutrophils # 5.9 (1.3-7.7) k/uL Lymphocytes # 1.3 (1.0-4.8) k/uL Monocytes # 0.5 (0-1.0) k/uL Eosinophils # 0.3 (0-0.7) k/uL Basophils # 0.0 (0-0.2) k/uL PT 10.5 (10.0-12.5) sec INR 1.0 (<1.2) APTT 26.7 (22.0-30.0) sec Sodium 135 L (137-145) mmol/L Potassium 4.3 (3.5-5.1) mmol/L Chloride 104 (98-107) mmol/L Carbon Dioxide 24 (22-30) mmol/L Anion Gap 7 mmol/L BUN 26 H (9-20) mg/dL Creatinine 1.50 H (0.66-1.25) mg/dL Est GFR (CKD-EPI)AfAm 50 (>60 ml/min/1.73 sqM) Est GFR (CKD-EPI)NonAf 44 (>60 ml/min/1.73 sqM) Glucose 105 H (74-99) mg/dL Calcium 8.6 (8.4-10.2) mg/dL Phosphorus 4.2 (2.5-4.5) mg/dL Magnesium 2.3 (1.6-2.3) mg/dL Total Bilirubin 0.5 (0.2-1.3) mg/dL AST 31 (17-59) U/L ALT 25 (4-49) U/L Alkaline Phosphatase 94 (38-126) U/L Troponin I (0.000-0.034) ng/mL Total Protein 6.5 (6.3-8.2) g/dL Albumin 3.9 (3.5-5.0) g/dL 10/25/23 Range/Units 20:55 WBC (3.8-10.6) k/uL RBC (4.30-5.90) m/uL Hgb (13.0-17.5) gm/dL Hct (39.0-53.0) % MCV (80.0-100.0) fL MCH (25.0-35.0) pg MCHC (31.0-37.0) g/dL RDW (11.5-15.5) % Plt Count (150-450) k/uL MPV Neutrophils % % Lymphocytes % % Monocytes % % Eosinophils % % Basophils % % Neutrophils # (1.3-7.7) k/uL Lymphocytes # (1.0-4.8) k/uL Monocytes # (0-1.0) k/uL Eosinophils # (0-0.7) k/uL Basophils # (0-0.2) k/uL PT (10.0-12.5) sec INR (<1.2) APTT (22.0-30.0) sec Sodium (137-145) mmol/L Potassium (3.5-5.1) mmol/L Chloride (98-107) mmol/L Carbon Dioxide (22-30) mmol/L Anion Gap mmol/L BUN (9-20) mg/dL Creatinine (0.66-1.25) mg/dL Est GFR (CKD-EPI)AfAm (>60 ml/min/1.73 sqM) Est GFR (CKD-EPI)NonAf (>60 ml/min/1.73 sqM) Glucose (74-99) mg/dL Calcium (8.4-10.2) mg/dL Phosphorus (2.5-4.5) mg/dL Magnesium (1.6-2.3) mg/dL Total Bilirubin (0.2-1.3) mg/dL AST (17-59) U/L ALT (4-49) U/L Alkaline Phosphatase (38-126) U/L Troponin I 0.037 H* (0.000-0.034) ng/mL Total Protein (6.3-8.2) g/dL Albumin (3.5-5.0) g/dL - EKG Data -: EKG Interpreted by Me (EKG is sinus 69 PA 238 QTc 190 QRS 44) - Radiology Data Radiology results: report reviewed (X-ray tib-fib, ankle right does show acute fracture over prior surgery), image reviewed Disposition Clinical Impression: Fall, Right tibial fracture, Right fibular fracture Disposition: OTHER INSTITUTION NOT DEFINED Condition: Fair Is patient prescribed a controlled substance at d/c from ED?: No Referrals: José Miguel Strickland [Primary Care Provider] - 1-2 days Time of Disposition: 21:00 - Out of Hospital Transfer - Req. Specs Out of Hospital Transfer - Requested Specifics: Other Emergency Center ([facility])
[2023-10-25] MEDS: HYDROmorphone 1 MG/ML 1 ML SYRINGE IVP STA ×2 (19:57→22:27)
--- NOTE | 2023-10-25 20:22 | XR ---
EXAMINATION TYPE: XR ankle limited RT, XR tibia fibula RT DATE OF EXAM: 10/25/2023 8:07 PM CLINICAL INDICATION:Male, 78 years old with history of pain; [facility] COMPARISON: None TECHNIQUE: XR ankle limited RT, XR tibia fibula RT; ankle is imaged in frontal, lateral and oblique projections. FINDINGS/IMPRESSION: * Suspected acute on chronic fracture of the prior site of injury with separation of fixation hardwa re. The foot is externally rotated. There is shortening and displacement of the fracture. No intra-ar ticular extension. * Acute on chronic fracture of the fibula is also suspected. * Severe degeneration changes throughout the joints of the foot with joint space narrowing and osteo phyte formation.
[2023-10-25] MEDS: SODIUM CHLORIDE 0.9% 1,000 ML IV STA (21:18)
[2023-10-25 21:44] LABS: Basophils % (A) 1 %; Eosinophils # (A) 0.3 k/uL (0-0.7); Eosinophils % (A) 4 %; HCT 38.3 % (39.0-53.0); HGB 12.4 gm/dL (13.0-17.5); Lymphocytes # (A) 1.3 k/uL (1.0-4.8); Lymphocytes % (A) 15 %; MCH 32.8 pg (25.0-35.0); MCHC 32.3 g/dL (31.0-37.0); MCV 101.6 fL (80.0-100.0); Mean Platelet Volume 8.7; Monocytes # (A) 0.5 k/uL (0-1.0); Monocytes % (A) 6 %; Neutrophils # (A) 5.9 k/uL (1.3-7.7); Neutrophils % (A) 72 %; Platelet Count 171 k/uL (150-450); RBC 3.77 m/uL (4.30-5.90); RDW 12.8 % (11.5-15.5); WBC 8.2 k/uL (3.8-10.6)
[2023-10-25 22:09] LABS: Partial Thromboplastin Time 26.7 sec (22.0-30.0); Prothrombin Time 10.5 sec (10.0-12.5)
[2023-10-25 22:15] LABS: ALT 25 U/L (4-49); AST 31 U/L (17-59); African American GFR (CKD) 50 (>60 ml/min/1.73 sqM); Albumin 3.9 g/dL (3.5-5.0); Alkaline Phosphatase 94 U/L (38-126); Anion Gap 7 mmol/L; Blood Urea Nitrogen 26 mg/dL (9-20); Calcium 8.6 mg/dL (8.4-10.2); Carbon Dioxide 24 mmol/L (22-30); Chloride 104 mmol/L (98-107); Glucose 105 mg/dL (74-99); Magnesium 2.3 mg/dL (1.6-2.3); Non-African American GFR(CKD) 44 (>60 ml/min/1.73 sqM); Phosphorus 4.2 mg/dL (2.5-4.5); Potassium 4.3 mmol/L (3.5-5.1); Sodium 135 mmol/L (137-145); Total Bilirubin 0.5 mg/dL (0.2-1.3); Total Protein 6.5 g/dL (6.3-8.2)
[2023-10-25 23:12] VITALS: BP 106/62; PULSE 75; RESP 16
== END 2023-10-25 22:30 | disposition other institution (70) ==
LOC: EC 19:23
DX: S82.401A Unspecified fracture of shaft of right fibula, initial encounter for closed fracture (principal); S82.201A Unspecified fracture of shaft of right tibia, initial encounter for closed fracture; Z87.891 Personal history of nicotine dependence; W01.0XXA Fall on same level from slipping, tripping and stumbling without subsequent striking against object, initial encounter; X50.1XXA Overexertion from prolonged static or awkward postures, initial encounter; Y93.01 Activity, walking, marching and hiking
CPT/HCPCS: 96376 ×2; 96361 ×2; 96374 ×2; 99285 ×2; 36415; 93005; 80053; 83735; 84100; 84484; 85025; 85610; 85730; 73590; 73600; 27752; J1170

== ENCOUNTER → 2024-05-30 | Outpatient (CLI) | payer MEDICARE ==
--- NOTE | 2024-05-31 14:34 | CT ---
EXAMINATION TYPE: CT lower extremity RT wo con DATE OF EXAM: 05/30/2024 6:23 PM COMPARISON: Extremity radiograph same day. CLINICAL INDICATION: Male, 78 years old with history of S82.201A UNSP FRACTURE OF SHAFT OF RIGHT TIBI A, IN; [facility], right tib/fib fx TECHNIQUE: Axial images were obtained of the CT lower extremity RT wo con, Additional coronal and sag ittal reformatted images and soft tissue and bone window were obtained for review. 3-D reconstruction was created on a separate workstation. Contrast used: mL of , (None if empty) Oral contrast used: (None if empty) CT DLP: 1119.2 mGycm, Automated exposure control for dose reduction was used. FINDINGS: There is moderate to severe degeneration changes of the joints of the knee with joint space narrowing and osteophyte formation. Findings worse in the patellofemoral joint. Findings also identi fied in the ankle joint with severe disuse osteopenia and decreased hearing with osteophyte formation . There is patchy osseous demineralization throughout the knee compatible with disuse osteopenia. External fixation of the tibial fracture with incomplete osseous fusion more inferiorly to the fixati on hardware. A more superior fracture may be surgically fixed with complete osseous fusion. Additionally there is a fibula fracture with incomplete osseous fusion of the inferior fracture site with the more superior fracture site appearing to have complete osseous fusion. Fixation hardware in the tibia does appear intact. IMPRESSION: External fixation of the leg with incomplete osseous fusion of both the tibia and fibular fractures. There remains open fracture line of the tibia and partial open fracture line of the fibula. 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 [facility], , 05/31/2024 2:31 PM
== END | disposition home or self-care (01) ==
LOC: RADCTMAIN 16:27
PROVIDERS: ATTEND Orthopaedic Surgery Orthopaedic Trauma
DX: S82.201A Unspecified fracture of shaft of right tibia, initial encounter for closed fracture (principal); M85.879 Other specified disorders of bone density and structure, unspecified ankle and foot; X58.XXXA Exposure to other specified factors, initial encounter

== ENCOUNTER 2024-05-31 16:14 | Inpatient (IN) | payer MEDICARE ==
--- NOTE | 2024-05-31 16:48 | ED ---
General Adult HPI - General Chief complaint: Shortness of Breath Stated complaint: SOB Time Seen by Provider: 05/31/24 16:39 Source: patient, family Mode of arrival: wheelchair Limitations: no limitations - History of Present Illness Initial comments: Patient presents to the ED with his daughter for evaluation. Patient states that he has had intermittent bouts of dyspnea over the past year or so since he was diagnosed with a COVID infection. Patient states that for the past 2 days or so, he has had a nonproductive cough, dyspnea and wheezing. Patient states that his dyspnea is worse with exertion. Patient states that he has been using his albuterol inhaler with some relief. Patient denies having any pain, fever or chills, headache, focal neuro deficit, sore throat, chest pain or pressure, hemoptysis, palpitations, dizziness, abdominal pain, nausea/vomiting/diarrhea, bloody or melanotic stool, dysuria or urinary symptoms, decreased urine output, leg or calf swelling or pain, or any other symptoms or complaints. Patient states that he is a former smoker, but he did smoke for a long period of time. - Related Data Home Medications Medication Instructions Recorded Confirmed Pravastatin Sodium [Pravachol] 10 mg PO HS 07/31/15 05/31/24 hydrALAZINE HCL [Apresoline] 50 mg PO BID-W/MEALS 07/31/15 05/31/24 Cholecalciferol [Vitamin D3 (25 25 mcg PO DAILY 07/24/22 05/31/24 Mcg = 1000 Iu)] Gabapentin [Neurontin] 100 mg PO TID 07/24/22 05/31/24 HYDROcodone/APAP 10-325MG [Dixie 1 tab PO Q8H PRN 07/24/22 05/31/24 10-325] Multivitamins, Thera [Multivitamin 1 tab PO DAILY 07/24/22 05/31/24 (formulary)] Zinc Gluconate [Zinc] 50 mg PO DAILY 07/24/22 05/31/24 amLODIPine 10 mg PO DAILY 07/24/22 05/31/24 carvediloL [Coreg] 3.125 mg PO BID-W/MEALS 07/24/22 05/31/24 Ascorbic Acid [Vitamin C] 1,000 mg PO DAILY 05/31/24 05/31/24 Aspirin EC [Ecotrin Low Dose] 81 mg PO DAILY 05/31/24 05/31/24 DULoxetine HCL [Cymbalta] 40 mg PO DAILY 05/31/24 05/31/24 Furosemide [Lasix] 40 mg PO DAILY 05/31/24 05/31/24 Glucosam/Rizwan-Msm1/C/Haroon/Bosw 1 tab PO DAILY 05/31/24 05/31/24 [Glucosamine-Chondroitin Tablet] Hydrocortisone Cream 1 applic TOPICAL BID 05/31/24 05/31/24 [Hydrocortisone 2.5% Cream] Magnesium Oxide [Magnesium] 500 mg PO DAILY 05/31/24 05/31/24 Montelukast [Singulair] 10 mg PO DAILY 05/31/24 05/31/24 NIFEdipine XL [Procardia XL] 60 mg PO DAILY 05/31/24 05/31/24 Nystatin 100,000Unit/gm Cream 1 applic TOPICAL BID 05/31/24 05/31/24 [Mycostatin Cream] Pioglitazone [Actos] 30 mg PO DAILY 05/31/24 05/31/24 Prevagen 1 cap PO DAILY 05/31/24 05/31/24 Tamsulosin [Flomax] 0.4 mg PO HS 05/31/24 05/31/24 Allergies Allergy/AdvReac Type Severity Reaction Status Date / Time No Known Allergies Allergy Verified 05/31/24 19:03 Review of Systems ROS Statement: Those systems with pertinent positive or pertinent negative responses have been documented in the HPI. ROS Other: All systems not noted in ROS Statement are negative. Past Medical History Past Medical History: Cancer, Diabetes Mellitus, Hyperlipidemia, Hypertension, Renal Disease, Sleep Apnea/CPAP/BIPAP Additional Past Medical History / Comment(s): hx. kidney cancer, uses cpap, History of Any Multi-Drug Resistant Organisms: None Reported Past Surgical History: Orthopedic Surgery Additional Past Surgical History / Comment(s): left side nephrectomy, repair fx. left ankle, repair fx. right leg Past Anesthesia/Blood Transfusion Reactions: No Reported Reaction Past Psychological History: No Psychological Hx Reported Smoking Status: Former smoker Past Alcohol Use History: Occasional Past Drug Use History: None Reported General Exam Limitations: no limitations General appearance: alert, in no apparent distress Head exam: Present: atraumatic Eye exam: Present: normal appearance ENT exam: Present: mucous membranes moist Neck exam: Present: other (Trachea is in midline) Respiratory exam: Present: other (Expiratory wheezes). Absent: respiratory distress, rales, rhonchi, stridor Cardiovascular Exam: Present: regular rate, normal rhythm, normal heart sounds, other (Normal radial pulses bilaterally) GI/Abdominal exam: Present: soft. Absent: tenderness, guarding Extremities exam: Present: other (Right lower leg external fixator in place). Absent: tenderness, pedal edema, calf tenderness Neurological exam: Present: alert, oriented X3. Absent: motor sensory deficit Psychiatric exam: Present: normal affect Skin exam: Present: warm, dry, normal color Course Vital Signs 05/31/24 05/31/24 05/31/24 16:21 16:47 18:18 Temperature 98.5 F Pulse Rate 92 93 Respiratory 20 24 Rate Blood Pressure 143/82 O2 Sat by Pulse 96 Oximetry 05/31/24 18:26 Temperature Pulse Rate 94 Respiratory Rate Blood Pressure O2 Sat by Pulse Oximetry - Reevaluation(s) Reevaluation #1: 05/31/24 18:15 Case, H&P and test results thus far were discussed with Dr. Welch (cardiology). He agrees with plan to obtain a CT angiography chest with IV c ontrast given the patient's elevated d-dimer (despite his elevated troponin). He states that if they need to cath the patient tomorrow, they will still do so. He agrees with plan to anticoagulate and admit the patient to the hospital with cardiology on consult. He has no further recommendations at this time. 05/31/24 19:50 Case, H&P, test results, ED management thus far and my discussion with Dr. Welch as above were discussed with WORKDAY DIRECTOR Liliana Richardson. She accepts hospital admission on behalf of of the [facility] hospitalist service. She has no further recommendations at this time. 05/31/24 19:53 Patient remains alert and breathing comfortably. Patient denies development of any new symptoms while in the ED. Patient is aware of his test results and my discussions as above, and he agrees with hospital admission at this time. EKG Findings - EKG Comments: EKG Findings:: ED physician interpretation (interpreted by me): Sinus rhythm with first-degree AV block, AK interval of 305 ms, right bundle branch block, QRS duration of 185 ms, normal axis, no ST elevation, no significant change when compared to 10/25/2023 EKG Medical Decision Making - Medical Decision Making Was pt. sent in by a medical professional or institution (ZOHAIB Brian, WORKDAY DIRECTOR, urgent care, hospital, or care home...) When possible be specific @ -No Did you speak to anyone other than the patient for history (EMS, parent, family, police, friend...)? What history was obtained from this source @ -No Did you review nursing and triage notes (agree or disagree)? Why? @ -I reviewed and agree with nursing and triage notes Were old charts reviewed (outside hosp., previous admission, EMS record, old EKG, old radiological studies, urgent care reports/EKG's, care home records)? Report findings @ -No old charts were reviewed Differential Diagnosis (chest pain, altered mental status, abdominal pain women, abdominal pain men, vaginal bleeding, weakness, fever, dyspnea, syncope, headache, dizziness, GI bleed, back pain, seizure, CVA, palpatations, mental health, musculoskeletal)? @ -Differential Dyspnea: Coronary syndrome, arrhythmia, tamponade, asthma, COPD, CHF, pulmonary embolism, pneumonia, pneumothorax, pleural effusion, viral illness, URI, bronchitis, anemia, neuromuscular, this is not meant to be an all-inclusive list. EKG interpreted by me (3pts min.). @ -As above X-rays interpreted by me (1pt min.). @ -Chest x-ray was reviewed myself and shows cardiomegaly and bilateral interstitial opacities consistent with pulmonary edema. I agree with the radiologist's interpretation as above. CT interpreted by me (1pt min.). @ -CT angiography chest with IV contrast was reviewed myself and shows no evidence of pulmonary embolism, but does demonstrate findings of CHF. I agree with the radiologist interpretation as above. U/S interpreted by me (1pt. min.). @ -None done What testing was considered but not performed or refused? (CT, X-rays, U/S, labs)? Why? @ -None What meds were considered but not given or refused? Why? @ -None Did you discuss the management of the patient with other professionals (professionals i.e. ZOHAIB Brian, WORKDAY DIRECTOR, lab, RT, psych nurse, social welfare administrator, literacy education professor, t eacher, airframe technical officer, cyanide case hardener)? Give summary @ -As above. Was smoking cessation discussed for >3mins.? @ -No Was critical care preformed (if so, how long)? @ -Yes, 40 minutes. Were there social determinants of health that impacted care today? How? (Homelessness, low income, unemployed, alcoholism, drug addiction, transportation, low edu. Level, literacy, decrease access to med. care, usp, rehab)? @ -No Was there de-escalation of care discussed even if they declined (Discuss DNR or withdrawal of care, Hospice)? DNR status @ -No What co-morbidities impacted this encounter? (DM, HTN, Smoking, COPD, CAD, Cancer, CVA, ARF, Chemo, Hep., AIDS, mental health diagnosis, sleep apnea, morb id obesity)? @ -History of smoking. Was patient admitted / discharged? Hospital course, mention meds given and route, prescriptions, significant lab abnormalities, going to OR and other pertinent info. @ -Patient presented to the ED complaining of having a dry cough and dyspnea for the past couple of days. Patient was noted to have wheezing on examination, so he was treated with a DuoNeb treatment and oral prednisone. Lab evaluation demonstrated an elevated troponin, as well as an elevated BNP level. Imaging studies showed findings consistent with CHF. CT angiography chest was negative for pulmonary embolism. Patient has been treated with heparin anticoagulation, as well as aspirin. Patient was also treated with a dose of IV Lasix in the ED. I do not suspect pneumonia given the patient is afebrile and without leukocytosis. Will admit the patient to the hospital for cardiac monitoring, serial troponins, cardiology consultation and further evaluation/management. Patient agrees with this plan. Cardiology was consulted from the ED. WORKDAY DIRECTOR Liliana Richardson has accepted hospital admission. Undiagnosed new problem with uncertain prognosis? @ -No Drug Therapy requiring intensive monitoring for toxicity (Heparin, Nitro, Insulin, Cardizem)? @ -No Were any procedures done? @ -No Diagnosis/symptom? @ -Elevated troponin Acute, or Chronic, or Acute on Chronic? @ -Acute Uncomplicated (without systemic symptoms) or Complicated (systemic symptoms)? @ -Default Side effects of treatment? @ -No Exacerbation, Progression, or Severe Exacerbation? @ -No Poses a threat to life or bodily function? How? (Chest pain, USA, ID, pneumonia, PE, COPD, DKA, ARF, appy, cholecystitis, CVA, Diverticulitis, Homicidal, Suicidal, threat to staff... and all critical care pts) @ -Possibly Diagnosis/symptom? @ -CHF Acute, or Chronic, or Acute on Chronic? @ -Default Uncomplicated (without systemic symptoms) or Complicated (systemic symptoms)? @ -Default Side effects of treatment? @ -None Exacerbation, Progression, or Severe Exacerbation] @ -No Poses a threat to life or bodily function? @ -Possibly - Lab Data Result diagrams: 05/31/24 17:06 05/31/24 17:06 Lab Results 05/31/24 05/31/24 05/31/24 Range/Units 17:06 17:06 17:06 WBC 9.6 (3.8-10.6) k/uL RBC 3.93 L (4.30-5.90) m/uL Hgb 12.6 L (13.0-17.5) gm/dL Hct 38.6 L (39.0-53.0) % MCV 98.2 (80.0-100.0) fL MCH 31.9 (25.0-35.0) pg MCHC 32.5 (31.0-37.0) g/dL RDW 13.4 (11.5-15.5) % Plt Count 157 (150-450) k/uL MPV 8.8 Neutrophils % 84 % Lymphocytes % 7 % Monocytes % 6 % Eosinophils % 2 % Basophils % 0 % Neutrophils # 8.0 H (1.3-7.7) k/uL Lymphocytes # 0.7 L (1.0-4.8) k/uL Monocytes # 0.6 (0-1.0) k/uL Eosinophils # 0.2 (0-0.7) k/uL Basophils # 0.0 (0-0.2) k/uL PT 10.8 (10.0-12.5) sec INR 1.0 (<1.2) APTT 27.0 (22.0-30.0) sec D-Dimer 0.92 H (<0.60) mg/L FEU Sodium 137 (137-145) mmol/L Potassium 4.4 (3.5-5.1) mmol/L Chloride 108 H (98-107) mmol/L Carbon Dioxide 21 L (22-30) mmol/L Anion Gap 8 mmol/L BUN 21 H (9-20) mg/dL Creatinine 1.20 (0.66-1.25) mg/dL Est GFR (CKD-EPI)AfAm 66 (>60 ml/min/1.73 sqM) Est GFR (CKD-EPI)NonAf 57 (>60 ml/min/1.73 sqM) Glucose 111 H (74-99) mg/dL Calcium 9.2 (8.4-10.2) mg/dL Total Bilirubin 0.9 (0.2-1.3) mg/dL AST 26 (17-59) U/L ALT 19 (4-49) U/L Alkaline Phosphatase 118 (38-126) U/L Troponin I (0.000-0.034) ng/mL NT-Pro-B Natriuret Pep 6600 pg/mL Total Protein 6.9 (6.3-8.2) g/dL Albumin 4.4 (3.5-5.0) g/dL Influenza Type A (PCR) (Not Detectd) Influenza Type B (PCR) (Not Detectd) RSV (PCR) (Not Detectd) SARS-CoV-2 (PCR) (Not Detectd) 05/31/24 05/31/24 Range/Units 17:06 17:06 WBC (3.8-10.6) k/uL RBC (4.30-5.90) m/uL Hgb (13.0-17.5) gm/dL Hct (39.0-53.0) % MCV (80.0-100.0) fL MCH (25.0-35.0) pg MCHC (31.0-37.0) g/dL RDW (11.5-15.5) % Plt Count (150-450) k/uL MPV Neutrophils % % Lymphocytes % % Monocytes % % Eosinophils % % Basophils % % Neutrophils # (1.3-7.7) k/uL Lymphocytes # (1.0-4.8) k/uL Monocytes # (0-1.0) k/uL Eosinophils # (0-0.7) k/uL Basophils # (0-0.2) k/uL PT (10.0-12.5) sec INR (<1.2) APTT (22.0-30.0) sec D-Dimer (<0.60) mg/L FEU Sodium (137-145) mmol/L Potassium (3.5-5.1) mmol/L Chloride (98-107) mmol/L Carbon Dioxide (22-30) mmol/L Anion Gap mmol/L BUN (9-20) mg/dL Creatinine (0.66-1.25) mg/dL Est GFR (CKD-EPI)AfAm (>60 ml/min/1.73 sqM) Est GFR (CKD-EPI)NonAf (>60 ml/min/1.73 sqM) Glucose (74-99) mg/dL Calcium (8.4-10.2) mg/dL Total Bilirubin (0.2-1.3) mg/dL AST (17-59) U/L ALT (4-49) U/L Alkaline Phosphatase (38-126) U/L Troponin I 0.314 H* (0.000-0.034) ng/mL NT-Pro-B Natriuret Pep pg/mL Total Protein (6.3-8.2) g/dL Albumin (3.5-5.0) g/dL Influenza Type A (PCR) Not Detected (Not Detectd) Influenza Type B (PCR) Not Detected (Not Detectd) RSV (PCR) Not Detected (Not Detectd) SARS-CoV-2 (PCR) Not Detected (Not Detectd) - Radiology Data Chest x-ray: Cardiomegaly and bilateral interstitial opacities which could reflect pulmonary edema of atypical infectious etiology. CT angiography chest with IV contrast: 1. No evidence of acute pulmonary embolism. 2. Cardiomegaly, small bilateral pleural effusions, right greater than left and interlobular septal thickening suggestive of pulmonary edema. 3. Lower lobe consolidative changes which could reflect comprehensive atelectasis and/or developing pneumonia. 4. Mildly enlarged nonspecific mediastinal and bilateral hilar lymph nodes, possibly reactive in etiology. Critical Care Time Critical Care Time: Yes Total Critical Care Time: 40 Disposition Clinical Impression: Dyspnea, Wheezing, Elevated troponin, CHF (congestive heart failure) Disposition: ADMITTED IP TO [facility] Condition: Stable Is patient prescribed a controlled substance at d/c from ED?: No Referrals: José Miguel Strickland [Primary Care Provider] - 1-2 days Time of Disposition: 19:50
[2024-05-31 17:23] LABS: Basophils % (A) 0 %; Eosinophils # (A) 0.2 k/uL (0-0.7); Eosinophils % (A) 2 %; HCT 38.6 % (39.0-53.0); HGB 12.6 gm/dL (13.0-17.5); Lymphocytes # (A) 0.7 k/uL (1.0-4.8); Lymphocytes % (A) 7 %; MCH 31.9 pg (25.0-35.0); MCHC 32.5 g/dL (31.0-37.0); MCV 98.2 fL (80.0-100.0); Mean Platelet Volume 8.8; Monocytes # (A) 0.6 k/uL (0-1.0); Monocytes % (A) 6 %; Neutrophils % (A) 84 %; Platelet Count 157 k/uL (150-450); RBC 3.93 m/uL (4.30-5.90); RDW 13.4 % (11.5-15.5); WBC 9.6 k/uL (3.8-10.6)
--- NOTE | 2024-05-31 17:27 | XR ---
EXAMINATION TYPE: XR chest 2V DATE OF EXAM: 05/31/2024 5:22 PM COMPARISON: Previous chest radiograph dated 09/04/2022. CLINICAL INDICATION: Male, 78 years old with history of difficulty breathing; [facility] TECHNIQUE: XR chest 2V Frontal and lateral views of the chest. FINDINGS: Cardiomegaly. Bilateral interstitial opacities which could reflect pulmonary vascular congestion or atypical infect ious etiology. Possible small left pleural effusion. No sizable right-sided pleural effusion. No pneumothorax. No acute osseous abnormality. IMPRESSION: Technically and bilateral interstitial opacities which could reflect pulmonary edema or atypical infe ctious etiology. [facility], , 05/31/2024 5:25 PM
[2024-05-31] MEDS: predniSONE 20 MG TAB PO STA (17:28)
[2024-05-31 17:32] LABS: ALT 19 U/L (4-49); AST 26 U/L (17-59); African American GFR (CKD) 66 (>60 ml/min/1.73 sqM); Albumin 4.4 g/dL (3.5-5.0); Alkaline Phosphatase 118 U/L (38-126); Anion Gap 8 mmol/L; Blood Urea Nitrogen 21 mg/dL (9-20); Calcium 9.2 mg/dL (8.4-10.2); Carbon Dioxide 21 mmol/L (22-30); Chloride 108 mmol/L (98-107); Glucose 111 mg/dL (74-99); Non-African American GFR(CKD) 57 (>60 ml/min/1.73 sqM); Potassium 4.4 mmol/L (3.5-5.1); Sodium 137 mmol/L (137-145); Total Bilirubin 0.9 mg/dL (0.2-1.3); Total Protein 6.9 g/dL (6.3-8.2)
[2024-05-31 17:40] LABS: NT-Pro-B-Type Natriuretic Pept 6600 pg/mL
[2024-05-31 17:50] LABS: Prothrombin Time 10.8 sec (10.0-12.5)
[2024-05-31] MEDS: ASPIRIN 325 MG TAB PO STA (18:15)
[2024-05-31] MEDS: IPRATROPIUM-ALBUTEROL 3 ML NEB INHALATION STA (18:17)
--- NOTE | 2024-05-31 19:36 | CT ---
EXAMINATION TYPE: CT chest angio for PE DATE OF EXAM: 05/31/2024 7:26 PM COMPARISON: Previous CT chest study dated 09/15/2022. CLINICAL INDICATION: Male, 78 years old with his tory of dyspnea, elevated d-dimer, elevated troponin; patient reports difficulty with breathing, wors ens with exertion/ambulation, elevated d-dimer. TECHNIQUE/CONTRAST: CTA scan of the thorax is performed with IV Contrast, patient injected with 80cc mL of Isovue 300, MA P images are created and reviewed these are created on a separate workstation.. CT DLP: 789.8 mGycm, Automated exposure control for dose reduction was used. FINDINGS: Pulmonary Artery: There is no evidence for a filling defect within the pulmonary vasculature to sugge st acute pulmonary embolism. The pulmonary artery is of normal size. Lungs/Pleura: Small bilateral pleural effusions. Additionally, there is interlobular septal thickenin g and wall thickening. The lower lobe consolidations also noted. Airway: Large airways are patent. Heart: Cardiomegaly. Coronary artery calcifications. Vasculature: No evidence of aortic aneurysm. Mediastinum: Mildly enlarged mediastinal lymph nodes. Largest subacromial Felt node measures 13 m m in short axis. Mildly prominent bilateral hilar nodes. Musculoskeletal: No acute osseous abnormalities Soft Tissues/lymph nodes: Unremarkable. Lower neck: No significant findings. Upper Abdomen: No significant acute findings. Postsurgical changes in the partially visualized left u pper quadrant of the abdomen. IMPRESSION: 1. No evidence of acute pulmonary embolism. 2. Cardiomegaly, small bilateral pleural effusions, right greater than left and interlobular septal thickening suggestive of pulmonary edema. 3. Lower lobe consolidative changes which could reflect compressive atelectasis and/or developing pn eumonia. 4. Mildly enlarged nonspecific mediastinal and bilateral hilar lymph nodes, possibly reactive in jose ology. [facility], , 05/31/2024 7:34 PM
[2024-05-31] MEDS ORDERED: NALOXONE 0.4 MG/ML 1 ML VIAL IV PRN (19:46)
[2024-05-31] MEDS: FUROSEMIDE 10 MG/ML 4 ML VIAL IV STA (20:23)
[2024-05-31] MEDS: HEPARIN SODIUM 1,000 UN/ML (10ML VL) IV ONE (20:26)
[2024-05-31] MEDS: HEPARIN SOD,PORK IN 0.45% NACL 25,000 UNIT in 0.45% NACL 1 250ML.BAG IV SCH (20:28)
[2024-05-31] MEDS: NITROGLYCERIN SL TABS 0.4 MG TAB SUBLINGUAL STA (20:39)
[2024-05-31] MEDS: NITROGLYCERIN OINT 1 INCH/GM PACKET TOPICAL STA (20:52)
--- NOTE | 2024-05-31 20:56 | XR ---
EXAMINATION TYPE: XR chest 1V portable DATE OF EXAM: 05/31/2024 8:50 PM COMPARISON: Chest radiographs from CLINICAL INDICATION: Male, 78 years old with history of worsening dyspnea; [facility] TECHNIQUE: XR chest 1V portable Frontal view of the chest. FINDINGS: Cardiomegaly. Patchy interstitial bilateral opacities, right greater than left. Small bilateral pleural effusions. No pneumothorax. No acute osseous abnormality. IMPRESSION: Findings suggestive of pulmonary edema and lower lobe atelectasis. Superimposed infectious etiology w ould be possible as well. [facility], , 05/31/2024 8:54 PM
[2024-05-31] MEDS: FUROSEMIDE 10 MG/ML 10 ML VIAL IV STA (21:03)
[2024-05-31] MEDS: FUROSEMIDE 100 MG in SODIUM CHLORIDE 0.9% 90 ML IV SCH (21:18)
[2024-05-31] MEDS: PRAVASTATIN SODIUM 20 MG TAB PO SCH (21:57)
[2024-05-31] MEDS: GABAPENTIN 100 MG CAP PO SCH (21:57)
[2024-05-31] MEDS: TAMSULOSIN 0.4 MG CAP.ER.24H PO SCH (21:57)
[2024-05-31] MEDS: NITROGLYCERIN-D5W PMX 50 MG in DEXTROSE/WATER 1 250ML.BAG IV SCH (22:06)
[2024-05-31] MEDS: HYDROcodone/APAP 10-325MG 1 EACH TAB PO PRN (23:01)
[2024-05-31 23:46] LABS: Glucose,Whole Blood 167 mg/dL (70-110)
[2024-06-01 00:18] LABS: African American GFR (CKD) 64 (>60 ml/min/1.73 sqM); Anion Gap 7 mmol/L; Blood Urea Nitrogen 20 mg/dL (9-20); Calcium 9.2 mg/dL (8.4-10.2); Carbon Dioxide 22 mmol/L (22-30); Chloride 107 mmol/L (98-107); Glucose 159 mg/dL (74-99); Non-African American GFR(CKD) 55 (>60 ml/min/1.73 sqM); Potassium 4.2 mmol/L (3.5-5.1); Sodium 136 mmol/L (137-145)
[2024-06-01] MEDS: HEPARIN SODIUM 1,000 UN/ML (10ML VL) IV PRN (02:28)
[2024-06-01 06:17] LABS: Basophils % (A) 0 %; Eosinophils % (A) 0 %; HCT 35.2 % (39.0-53.0); HGB 11.6 gm/dL (13.0-17.5); Lymphocytes # (A) 0.5 k/uL (1.0-4.8); Lymphocytes % (A) 6 %; MCH 32.2 pg (25.0-35.0); MCHC 32.9 g/dL (31.0-37.0); MCV 97.9 fL (80.0-100.0); Mean Platelet Volume 8.7; Monocytes # (A) 0.3 k/uL (0-1.0); Monocytes % (A) 4 %; Neutrophils # (A) 7.2 k/uL (1.3-7.7); Neutrophils % (A) 90 %; Platelet Count 156 k/uL (150-450); RDW 13.3 % (11.5-15.5)
[2024-06-01 06:25] LABS: Prothrombin Time 10.9 sec (10.0-12.5)
[2024-06-01 06:37] LABS: African American GFR (CKD) 61 (>60 ml/min/1.73 sqM); Anion Gap 8 mmol/L; Blood Urea Nitrogen 21 mg/dL (9-20); Carbon Dioxide 24 mmol/L (22-30); Chloride 106 mmol/L (98-107); Glucose 151 mg/dL (74-99); Non-African American GFR(CKD) 53 (>60 ml/min/1.73 sqM); Potassium 3.9 mmol/L (3.5-5.1); Sodium 138 mmol/L (137-145)
[2024-06-01] MEDS: carvediloL 3.125 MG TAB PO SCH (06:38)
[2024-06-01] MEDS: hydrALAZINE HCL 50 MG TAB PO SCH (06:38)
--- NOTE | 2024-06-01 07:18 | P.CNPUL ---
History of Present Illness Consult date: 06/01/24 Requesting physician: Candelario Crawford Reason for consult: dyspnea Chief complaint: Progressively worsening shortness of breath over the last 2 days History of present illness: Patient is a 78-year-old male with past medical history significant for diabetes mellitus, hyperlipidemia, hypertension, obesity, obstructive sleep apnea with home CPAP, renal CA with previous left-sided nephrectomy, former tobacco smoker. Of note, patient recently had a fall in October, sustained significant displaced fr actures to his right lower extremity, s/p surgical repair, with external fixator. Patient presented to the emergency department yesterday with a chief complaint of progressively worsening shortness of breath over the last couple days. Does state that approximately 2 weeks ago he did have a "cold". Endorses cough, mostly nonproductive. Denies sick contacts. Denies fevers, chills, sputum production, chest pain, hemoptysis. These symptoms did initially improve, followed by significant shortness of breath over the last 2 days. Denies chest pain, heart palpitations, syncopal events, lower extremity swelling, orthopnea. He arrived in the emergency department in a state of respiratory distress, and was originally placed on BiPAP. Chest x-ray done admission consistent with pulmonary edema. Follow-up chest CT angio did not show any evidence of acute pulmonary embolism. There is cardiomegaly, small bilateral pleural effusions, right greater than left interlobular septal thickening suggestive of pulmonary edema. Bibasilar compressive atelectasis. Mildly enlarged mediastinal lymph nodes. CBC unremarkable for leukocytosis. CMP on arrival: Sodium 137, potassium 4.4, chloride 108, serum bicarb 21, BUN 21, creatinine 1.2, glucose 111. LFTs unremarkable. Negative for influenza, R SV, COVID. EKG: Sinus rhythm, first degree AV block, RBBB pattern, minimal ST depressions in 2, 3, aVF as well as, chronic T wave inversions. Serial troponins elevated at 0.31, 0.24, and 0.29 respectively. NT proBNP elevated at 6600. Patient was placed on a Lasix infusion at 10 mg/h in the ED. Also, on a nitroglycerin infusion at 5 mcg/min, and heparin infusion per protocol. Patient is currently being evaluated in the intensive care unit. He remains on BiPAP with settings 14/7 and FiO2 50%. Respiratory rate is nontachypneic and nonlabored breathing pattern. Tidal volumes around 700-900 mL. An indwelling urinary catheter was placed, urine is slightly blood-tinged. A total of 1.7 L has been diuresed so far. Review of Systems Constitutional: Reports fatigue, Denies chills, Denies fever, Denies sweats, Denies weight gain, Denies weight loss Ears, nose, mouth and throat: Denies headache, Denies nasal congestion, Denies nasal discharge, Denies post-nasal drip, Denies sinus pain, Denies sinus pressure Cardiovascular: Reports decreased exercise tolerance, Reports dyspnea on exertion, Reports shortness of breath, Denies chest pain, Denies irregular heart beat, Denies leg edema, Denies lightheadedness, Denies orthopnea, Denies palpitations, Denies paroxysmal nocturnal dyspnea, Denies syncope Gastrointestinal: Denies abdominal pain, Denies constipation, Denies diarrhea, Denies nausea, Denies vomiting Musculoskeletal: Reports limitation of motion Integumentary: Denies rash Neurological: Denies seizures, Denies syncope Psychiatric: Denies anxiety, Denies depression Past Medical History Past Medical History: Cancer, Diabetes Mellitus, Hyperlipidemia, Hypertension, Renal Disease, Sleep Apnea/CPAP/BIPAP Additional Past Medical History / Comment(s): hx. kidney cancer, uses cpap, History of Any Multi-Drug Resistant Organisms: None Reported Past Surgical History: Orthopedic Surgery Additional Past Surgical History / Comment(s): left side nephrectomy, repair fx. left ankle, repair fx. right leg Past Anesthesia/Blood Transfusion Reactions: No Reported Reaction Past Psychological History: No Psychological Hx Reported Smoking Status: Former smoker Past Alcohol Use History: Occasional Additional Past Alcohol Use History / Comment(s): quit smoking 2010, smoked on & off "years" Past Drug Use History: None Reported Medications and Allergies Home Medications Medication Instructions Recorded Confirmed Type Pravastatin Sodium [Pravachol] 10 mg PO HS 07/31/15 05/31/24 History hydrALAZINE HCL [Apresoline] 50 mg PO BID-W/MEALS 07/31/15 05/31/24 History Cholecalciferol [Vitamin D3 (25 25 mcg PO DAILY 07/24/22 05/31/24 History Mcg = 1000 Iu)] Gabapentin [Neurontin] 100 mg PO TID 07/24/22 05/31/24 History HYDROcodone/APAP 10-325MG [[place] 1 tab PO Q8H PRN 07/24/22 05/31/24 History 10-325] Multivitamins, Thera [Multivitamin 1 tab PO DAILY 07/24/22 05/31/24 History (formulary)] Zinc Gluconate [Zinc] 50 mg PO DAILY 07/24/22 05/31/24 History amLODIPine 10 mg PO DAILY 07/24/22 05/31/24 History carvediloL [Coreg] 3.125 mg PO BID-W/MEALS 07/24/22 05/31/24 History Ascorbic Acid [Vitamin C] 1,000 mg PO DAILY 05/31/24 05/31/24 History Aspirin EC [Ecotrin Low Dose] 81 mg PO DAILY 05/31/24 05/31/24 History DULoxetine HCL [Cymbalta] 40 mg PO DAILY 05/31/24 05/31/24 History Furosemide [Lasix] 40 mg PO DAILY 05/31/24 05/31/24 History Glucosam/Rizwan-Msm1/C/Haroon/Bosw 1 tab PO DAILY 05/31/24 05/31/24 History [Glucosamine-Chondroitin Tablet] Hydrocortisone Cream 1 applic TOPICAL BID 05/31/24 05/31/24 History [Hydrocortisone 2.5% Cream] Magnesium Oxide [Magnesium] 500 mg PO DAILY 05/31/24 05/31/24 History Montelukast [Singulair] 10 mg PO DAILY 05/31/24 05/31/24 History NIFEdipine XL [Procardia XL] 60 mg PO DAILY 05/31/24 05/31/24 History Nystatin 100,000Unit/gm Cream 1 applic TOPICAL BID 05/31/24 05/31/24 History [Mycostatin Cream] Pioglitazone [Actos] 30 mg PO DAILY 05/31/24 05/31/24 History Prevagen 1 cap PO DAILY 05/31/24 05/31/24 History Tamsulosin [Flomax] 0.4 mg PO HS 05/31/24 05/31/24 History Allergies Allergy/AdvReac Type Severity Reaction Status Date / Time No Known Allergies Allergy Verified 05/31/24 19:03 Physical Exam Vitals: Vital Signs Temp Pulse Resp BP Pulse Ox FiO2 05/31/24 23:46 50 05/31/24 23:41 60 05/31/24 23:35 86 18 138/80 100 05/31/24 22:45 96 18 139/82 100 05/31/24 22:15 93 18 138/75 100 05/31/24 22:00 95 18 140/75 100 05/31/24 21:10 60 05/31/24 21:00 98.7 F 101 H 23 142/78 98 60 05/31/24 20:30 120 H 28 H 162/108 93 L 05/31/24 18:26 94 05/31/24 18:18 93 05/31/24 16:47 24 05/31/24 16:21 98.5 F 92 20 143/82 96 Intake and Output 05/31/24 05/31/24 06/01/24 14:59 22:59 06:59 Output Total 800 900 Balance -800 -900 Output: Urine 800 900 Other: Weight 122.47 kg GENERAL EXAM: Alert, 78-year-old obese male, on BiPAP, fairly comfortable in no apparent distress. HEAD: Normocephalic and atraumatic EYES: Normal reaction of pupils, equal size. NOSE: Clear with pink turbinates. THROAT: No erythema or exudates. NECK: No masses, no JVD. CHEST: No chest wall deformity. LUNGS: Equal air entry with bibasilar inspiratory rales. No rhonchi, wheezes focal dullness. On BiPAP with settings 14/7 and FiO2 of 50%. SpO2 is reading 98%. Ventilating appropriately. No conversational dyspnea or accessory muscle use.. CVS: S1 and S2 normal with no audible murmur, regular rhythm. No extra heart sounds ABDOMEN: No hepatosplenomegaly, active bowel sounds, no guarding or rigidity. SPINE: No scoliosis or deformity SKIN: No rashes CENTRAL NERVOUS SYSTEM: No focal deficits, tone is normal in all 4 extremities. EXTREMITIES: There is mild nonpitting lower extremity edema. Right lower extremity external fixation device. Distal pulses are palpable. Results - Laboratory Findings CBC and BMP: 06/01/24 05:37 06/01/24 05:37 PT/INR, D-dimer PT 10.8 sec (10.0-12.5) 05/31/24 17:06 INR 1.0 (<1.2) 05/31/24 17:06 D-Dimer 0.92 mg/L FEU (<0.60) H 12/24/24 17:06 Abnormal lab findings: Abnormal Labs 05/31/24 05/31/24 05/31/24 17:06 17:06 17:06 RBC 3.93 L Hgb 12.6 L Hct 38.6 L Neutrophils # 8.0 H Lymphocytes # 0.7 L D-Dimer 0.92 H Sodium Chloride 108 H Carbon Dioxide 21 L BUN 21 H Glucose 111 H POC Glucose (mg/dL) Troponin I 05/31/24 05/31/24 05/31/24 17:06 20:03 23:19 RBC Hgb Hct Neutrophils # Lymphocytes # D-Dimer Sodium Chloride Carbon Dioxide BUN Glucose POC Glucose (mg/dL) Troponin I 0.314 H* 0.244 H* 0.291 H* 05/31/24 05/31/24 23:19 23:44 RBC Hgb Hct Neutrophils # Lymphocytes # D-Dimer Sodium 136 L Chloride Carbon Dioxide BUN Glucose 159 H POC Glucose (mg/dL) 167 H Troponin I - Diagnostic Findings Chest x-ray: image reviewed CT scan - chest: image reviewed Assessment and Plan Assessment: Acute hypoxemic respiratory failure, currently on BiPAP, secondary to acute pu lmonary edema. Chest x-ray done admission consistent with pulmonary edema. NT proBNP 6600 Elevated troponins, rule out non-ST elevation Acute CHF exacerbation, unknown type History of mild nonobstructive CAD, Heart catheterization done July, showing mostly mild nonobstructive disease involving the LAD, no significant stenosis or occlusive disease was reported. History of diabetes mellitus, type 2 History of hypertension History of hyperlipidemia Obesity, with a BMI of 36.6 kg/m History of obstructive sleep apnea, uses nasal CPAP at home History of renal cancer and previous nephrectomy Former tobacco dependence History of traumatic right tibia-fibula fracture, status post surgical repair, with external fixation Plan: Patient medications, labs, imaging reviewed Continue on BiPAP with current settings Continue Lasix infusion overnight Monitor accurate intake and output Monitor and replace electrolytes per protocol Patient will continue on nitro infusion and heparin infusion per protocol Obtain echocardiogram Cardiology is consulted We will also continue to follow the patient while in the intensive care unit I have personally seen and examined the patient, performed the documentation and the assessment and plan as written. Number of minutes spent on the visit:20 Time with Patient: Greater than 30
[2024-06-01] MEDS ORDERED: POTASSIUM CHLORIDE ER 20 MEQ TAB.ER PO SCH (08:00)
--- NOTE | 2024-06-01 08:21 | XR ---
EXAMINATION TYPE: XR chest 1V portable DATE OF EXAM: 06/01/2024 COMPARISON: 05/31/2024 CLINICAL INDICATION: Male, 78 years old with history of follow up sob, pulm edema; TECHNIQUE: Single frontal view of the chest is obtained. FINDINGS: The diffuse interstitial and partially consolidative infiltrates in both lungs have decreas ed in the interval. There is better aeration than on the prior study. Minimal infiltrate in the right lower lung persists. There is no large pleural effusion. No pneumothorax. Osseous structures are intact. IMPRESSION: Significant improvement in the acute cardiopulmonary processes scattered above. Small right lower lob e infiltrate persists. [facility], , 06/01/2024 8:18 AM
[2024-06-01] MEDS ORDERED: NON FORMULARY DRUG (Prevagen 1 CAP) PO SCH (09:00)
[2024-06-01] MEDS ORDERED: FUROSEMIDE 40 MG TAB PO SCH (09:00)
--- NOTE | 2024-06-01 09:00 | P.HPIM ---
History of Present Illness This is a pleasant 78 years old male with past medical history of multiple medical problems as below. Patient presents because of worsening dyspnea over a few days associated with coughing for about 2 weeks with her to bring phlegm up. Patient denies chest pain. No specific GI/ symptoms. No headache dizziness weakness or numbness Patient had a fracture of his right leg status post external fixation done in another hospital. However no issue with it and pain looks controlled He denies smoking alcohol or illicit drugs Patient is hemodynamically stable, afebrile, last night he has with the BiPAP when he was tachypneic with breathing rate around 24 has unremarkable CBC, BMP, LFT, INR. Hemoglobin 12.6 D-dimer elevated 0.92 Troponin is elevated 0.314 and 0.24 proBNP is elevated 6600 Chest x-ray showing bilateral infiltrates suspicious for CHF CTA of the lung is negative for acute PE but there is cardiomegaly with pul monary vascular congestion Atelectasis versus pneumonia of the lower lobes EKG showing ectopic atrial rhythm at 93. Influenza A and type B, RSV, SARS (coronavirus) areundetected Patient was admitted to the ICU and started on Lasix drip, heparin drip and nitro drip Review of Systems Review of systems CONSTITUTIONAL: No fever, no malaise, no fatigue. HEENT: No recent visual problems or hearing problems. Denied any sore throat. CARDIOVASCULAR: No orthopnea, PND, no palpitations, no syncope. PULMONARY: No chest wall tenderness,, no hemoptysis. GASTROINTESTINAL: No diarrhea, no nausea, no vomiting, no abdominal pain. Normoactive bowel sounds. NEUROLOGICAL: No headaches, no weakness, no numbness. HEMATOLOGICAL: Denies any bleeding or petechiae. GENITOURINARY: Denies any burning micturition, frequency, or urgency. MUSCULOSKELETAL/RHEUMATOLOGICAL: Denies any joint pain, swelling, or any muscle pain. ENDOCRINE: Denies any polyuria or polydipsia. Past Medical History Past Medical History: Cancer, Diabetes Mellitus, Hyperlipidemia, Hypertension, Renal Disease, Sleep Apnea/CPAP/BIPAP Additional Past Medical History / Comment(s): hx. kidney cancer, uses cpap, History of Any Multi-Drug Resistant Organisms: None Reported Past Surgical History: Orthopedic Surgery Additional Past Surgical History / Comment(s): left side nephrectomy, repair fx. left ankle, repair fx. right leg Past Anesthesia/Blood Transfusion Reactions: No Reported Reaction Past Psychological History: No Psychological Hx Reported Smoking Status: Former smoker Past Alcohol Use History: Occasional Additional Past Alcohol Use History / Comment(s): quit smoking 2010, smoked on & off "years" Past Drug Use History: None Reported Medications and Allergies Home Medications Medication Instructions Recorded Confirmed Type Pravastatin Sodium [Pravachol] 10 mg PO HS 07/31/15 05/31/24 History hydrALAZINE HCL [Apresoline] 50 mg PO BID-W/MEALS 07/31/15 05/31/24 History Cholecalciferol [Vitamin D3 (25 25 mcg PO DAILY 07/24/22 05/31/24 History Mcg = 1000 Iu)] Gabapentin [Neurontin] 100 mg PO TID 07/24/22 05/31/24 History HYDROcodone/APAP 10-325MG [[place] 1 tab PO Q8H PRN 07/24/22 05/31/24 History 10-325] Multivitamins, Thera [Multivitamin 1 tab PO DAILY 07/24/22 05/31/24 History (formulary)] Zinc Gluconate [Zinc] 50 mg PO DAILY 07/24/22 05/31/24 History amLODIPine 10 mg PO DAILY 07/24/22 05/31/24 History carvediloL [Coreg] 3.125 mg PO BID-W/MEALS 07/24/22 05/31/24 History Ascorbic Acid [Vitamin C] 1,000 mg PO DAILY 05/31/24 05/31/24 History Aspirin EC [Ecotrin Low Dose] 81 mg PO DAILY 05/31/24 05/31/24 History DULoxetine HCL [Cymbalta] 40 mg PO DAILY 05/31/24 05/31/24 History Furosemide [Lasix] 40 mg PO DAILY 05/31/24 05/31/24 History Glucosam/Rizwan-Msm1/C/Haroon/Bosw 1 tab PO DAILY 05/31/24 05/31/24 History [Glucosamine-Chondroitin Tablet] Hydrocortisone Cream 1 applic TOPICAL BID 05/31/24 05/31/24 History [Hydrocortisone 2.5% Cream] Magnesium Oxide [Magnesium] 500 mg PO DAILY 05/31/24 05/31/24 History Montelukast [Singulair] 10 mg PO DAILY 05/31/24 05/31/24 History NIFEdipine XL [Procardia XL] 60 mg PO DAILY 05/31/24 05/31/24 History Nystatin 100,000Unit/gm Cream 1 applic TOPICAL BID 05/31/24 05/31/24 History [Mycostatin Cream] Pioglitazone [Actos] 30 mg PO DAILY 05/31/24 05/31/24 History Prevagen 1 cap PO DAILY 05/31/24 05/31/24 History Tamsulosin [Flomax] 0.4 mg PO HS 05/31/24 05/31/24 History Allergies Allergy/AdvReac Type Severity Reaction Status Date / Time No Known Allergies Allergy Verified 05/31/24 19:03 Physical Exam Vitals: Vital Signs Temp Pulse Resp BP Pulse Ox FiO2 06/01/24 08:03 44 06/01/24 07:00 76 13 152/80 96 06/01/24 06:50 75 13 98 06/01/24 06:40 86 29 H 144/79 94 L 06/01/24 06:30 80 15 93 L 06/01/24 06:20 76 12 146/78 94 L 06/01/24 06:10 75 13 147/82 96 06/01/24 06:00 77 14 97 06/01/24 05:50 75 16 95 06/01/24 05:40 76 7 L 143/80 98 06/01/24 05:30 76 11 L 138/83 96 06/01/24 05:20 75 14 138/83 95 06/01/24 05:10 80 13 145/80 98 06/01/24 05:00 79 13 151/89 97 06/01/24 04:50 80 15 151/89 97 06/01/24 04:40 81 16 141/110 98 06/01/24 04:30 80 15 148/83 98 06/01/24 04:20 80 13 148/83 94 L 06/01/24 04:10 85 23 154/79 97 06/01/24 04:00 98.4 F 82 15 149/81 97 40 06/01/24 03:50 82 17 149/81 97 06/01/24 03:40 81 14 136/73 97 06/01/24 03:30 86 18 138/66 97 06/01/24 03:27 40 06/01/24 03:20 80 12 138/66 98 06/01/24 03:10 84 18 143/78 97 06/01/24 03:00 81 13 147/79 97 06/01/24 02:50 79 13 147/79 97 06/01/24 02:40 80 13 146/78 98 06/01/24 02:30 83 23 151/77 98 06/01/24 02:20 81 13 151/77 97 06/01/24 02:10 79 19 149/77 98 06/01/24 02:08 98.8 F 80 16 149/77 97 50 06/01/24 00:00 18 05/31/24 23:46 50 05/31/24 23:41 60 05/31/24 23:35 86 18 138/80 100 05/31/24 22:45 96 18 139/82 100 05/31/24 22:15 93 18 138/75 100 05/31/24 22:00 95 18 140/75 100 05/31/24 21:10 60 05/31/24 21:00 98.7 F 101 H 23 142/78 98 60 05/31/24 20:30 120 H 28 H 162/108 93 L 05/31/24 18:26 94 05/31/24 18:18 93 05/31/24 16:47 24 05/31/24 16:21 98.5 F 92 20 143/82 96 Intake and Output 05/31/24 06/01/24 06/01/24 22:59 06:59 14:59 Intake Total 146.167 Output Total 800 3115 Balance -800 -3598.833 Intake: Intake, IV Titration 146.167 Amount Furosemide 100 mg In 86.167 Sodium Chloride 0.9% 90 ml @ 10 MG/HR 10 mls/hr IV .Q10H [facility] Rx#: [id number] Heparin Sod,Pork in 0.45% 60 NaCl 25,000 unit In 0.45 % NaCl 1 250ml.bag @ 8. 165 UNITS/KG/HR 10 mls/hr IV .Q24H [facility] Rx#: [id number] Output: Urine 800 3115 Other: Voiding Method Indwelling Catheter Weight 122.47 kg 118.7 kg My exam patient has CAD GENERAL: The patient is alert and oriented x3, not in any acute distress. Well developed, well nourished. HEENT: Pupils are round and equally reacting to light. EOMI. No scleral icterus. No conjunctival pallor. Normocephalic, atraumatic. No pharyngeal erythema. No thyromegaly. CARDIOVASCULAR: S1 and S2 present. No murmurs, rubs, or gallops. -PULMONARY: Chest is clear to auscultation, no wheezing , bilateral basal crackles. ABDOMEN: Soft, nontender, nondistended, normoactive bowel sounds. No palpable organomegaly. MUSCULOSKELETAL: No joint swelling or deformity. -Bilateral basal EXTREMITIES: No cyanosis, clubbing, left leg pitting edema 2+. Right leg with external fixation for his fracture 4 months ago NEUROLOGICAL: Gross neurological examination did not reveal any focal deficits. SKIN: No rashes. no petechiae. Results CBC & Chem 7: 06/01/24 05:37 06/01/24 05:37 Labs: Abnormal Lab Results - Last 24 Hours (Table) 05/31/24 05/31/24 05/31/24 Range/Units 17:06 17:06 17:06 RBC 3.93 L (4.30-5.90) m/uL Hgb 12.6 L (13.0-17.5) gm/dL Hct 38.6 L (39.0-53.0) % Neutrophils # 8.0 H (1.3-7.7) k/uL Lymphocytes # 0.7 L (1.0-4.8) k/uL APTT (22.0-30.0) sec D-Dimer 0.92 H (<0.60) mg/L FEU Sodium (137-145) mmol/L Chloride 108 H (98-107) mmol/L Carbon Dioxide 21 L (22-30) mmol/L BUN 21 H (9-20) mg/dL Creatinine (0.66-1.25) mg/dL Glucose 111 H (74-99) mg/dL POC Glucose (mg/dL) (70-110) mg/dL Troponin I (0.000-0.034) ng/mL 05/31/24 05/31/24 05/31/24 Range/Units 17:06 20:03 23:19 RBC (4.30-5.90) m/uL Hgb (13.0-17.5) gm/dL Hct (39.0-53.0) % Neutrophils # (1.3-7.7) k/uL Lymphocytes # (1.0-4.8) k/uL APTT (22.0-30.0) sec D-Dimer (<0.60) mg/L FEU Sodium (137-145) mmol/L Chloride (98-107) mmol/L Carbon Dioxide (22-30) mmol/L BUN (9-20) mg/dL Creatinine (0.66-1.25) mg/dL Glucose (74-99) mg/dL POC Glucose (mg/dL) (70-110) mg/dL Troponin I 0.314 H* 0.244 H* 0.291 H* (0.000-0.034) ng/mL 05/31/24 05/31/24 06/01/24 Range/Units 23:19 23:44 01:53 RBC (4.30-5.90) m/uL Hgb (13.0-17.5) gm/dL Hct (39.0-53.0) % Neutrophils # (1.3-7.7) k/uL Lymphocytes # (1.0-4.8) k/uL APTT 33.5 H (22.0-30.0) sec D-Dimer (<0.60) mg/L FEU Sodium 136 L (137-145) mmol/L Chloride (98-107) mmol/L Carbon Dioxide (22-30) mmol/L BUN (9-20) mg/dL Creatinine (0.66-1.25) mg/dL Glucose 159 H (74-99) mg/dL POC Glucose (mg/dL) 167 H (70-110) mg/dL Troponin I (0.000-0.034) ng/mL 06/01/24 06/01/24 Range/Units 05:37 05:37 RBC 3.60 L (4.30-5.90) m/uL Hgb 11.6 L (13.0-17.5) gm/dL Hct 35.2 L (39.0-53.0) % Neutrophils # (1.3-7.7) k/uL Lymphocytes # 0.5 L (1.0-4.8) k/uL APTT (22.0-30.0) sec D-Dimer (<0.60) mg/L FEU Sodium (137-145) mmol/L Chloride (98-107) mmol/L Carbon Dioxide (22-30) mmol/L BUN 21 H (9-20) mg/dL Creatinine 1.27 H (0.66-1.25) mg/dL Glucose 151 H (74-99) mg/dL POC Glucose (mg/dL) (70-110) mg/dL Troponin I (0.000-0.034) ng/mL Thrombosis Risk Factor Assmnt - Choose All That Apply Each Factor Represents 1 point: Obesity (BMI >25), Serious lung disease incl. pneumonia (< 1month) Each Risk Factor Represents 3 Points: Age 75 years or older Other congenital or acquired thrombophilia - If yes, enter type in comment: Yes Each Risk Factor Represents 5 Points: Hip, pelvis, or leg fracture (< 1 month) Thrombosis Risk Factor Assessment Total Risk Factor Score: 10 Thrombosis Risk Factor Assessment Level: High Risk Assessment and Plan Assessment: Acute CHF, unknown ejection fraction Elevated troponin, rule out acute coronary syndrome History of right leg fracture status post external fixator about 4 months ago Diabetes mellitus Hypertension Hyperlipidemia Plan: Continue with in Lasix drip Continue with heparin drip and nitroglycerin drip Cardiology and pulmonary team consult Labs and medication were reviewed.. Continue same treatment. Continue with symptomatic treatment. Resume home medication. Monitor lytes and vitals. DVT and GI prophylaxis. Further recommendations depends on the clinical course of the patient DVT prophylaxis: heparin GI Prophylaxis: Pepcid PT/OT: Pending Prognosis is guarded
[2024-06-01] MEDS: POTASSIUM CHLORIDE ER 20 MEQ TAB.ER PO STA (10:27)
[2024-06-01] MEDS: amLODIPine 10 MG TAB PO SCH (10:33)
[2024-06-01] MEDS: DULoxetine HCL 20 MG CAPSULE.DR PO SCH (10:34)
[2024-06-01] MEDS: MAGNESIUM OXIDE 400 MG TAB PO SCH (10:34)
[2024-06-01] MEDS: PIOGLITAZONE 30 MG TAB PO SCH (10:46)
[2024-06-01] MEDS: FUROSEMIDE 10 MG/ML 10 ML VIAL IV SCH (12:49)
[2024-06-01 16:31] LABS: Glucose,Whole Blood 128 mg/dL (70-110)
[2024-06-01] MEDS: HEPARIN SODIUM,PORCINE 5,000 UNIT/ML 1 ML VIAL SQ SCH (16:52)
--- NOTE | 2024-06-01 19:52 | CONS ---
CONSULTATION CHIEF COMPLAINT: Shortness of breath. HISTORY OF PRESENT ILLNESS: This is an 78-year-old gentleman, who is admitted to hospital with acute onset respiratory failure secondary to pulmonary edema. He has history of mild nonobstructive CAD, hypertension, dyslipidemia, sleep apnea, and renal insufficiency. He had elevated D-dimer, underwent CT scan of the chest that was negative for pulmonary embolism, showed bilateral pleural effusions. He is treated with Lasix drip with significant improvement in his symptoms. This morning, the patient's shortness of breath has resolved. He had mild troponin elevation, which is probably related to the respiratory insufficiency and type 2 myocardial infarction. I performed a cardiac catheterization on him because of LV systolic dysfunction that revealed mild nonobstructive CAD. I am going to change his Lasix drip to Lasix 60 q.8. I will stop the IV heparin, start him on subcu heparin, and obtain a 2D echo in the morning. He is already on Coreg with Norvasc, Apresoline that he is on. I will stop the Procardia and continue the Pravachol. PAST MEDICAL HISTORY: Significant for hypertension, diabetes, dyslipidemia. MEDICATIONS: Include: 1. Pravachol. 2. Actos. 3. Procardia. 4. Cymbalta. 5. Apresoline. 6. Coreg. 7. Amlodipine. 8. Neurontin. 9. Lasix. 10.Aspirin. ALLERGIES: No known drug allergies. FAMILY HISTORY: Negative for premature coronary artery disease. SOCIAL HISTORY: Negative for current smoking, ETOH abuse, or drug abuse. REVIEW OF SYSTEMS: HEENT: Unremarkable. CARDIAC: As described above. RESPIRATORY: As described above. GI: Negative. GENITOURINARY: Negative. ALLERGY/IMMUNOLOGY: Negative. SKIN: Negative. MUSCULOSKELETAL: Significant for arthritis. PSYCHOSOCIAL: Negative. DERM: Negative. CONSTITUTIONAL: Negative. ONCOLOGICAL: Negative. ORGANIC EXTRACTIONS TECHNICIAN: Negative. PHYSICAL EXAMINATION: VITAL SIGNS: Heart rate is 78 beats per minute, blood pressure is 128/72, respiratory rate is 18, O2 saturation is 97% on room air. NECK: There is no jugular venous distention. Carotid upstroke is normal. There is no bruit. CHEST: Reveals good air entry bilaterally. I do not hear any crackles or rhonchi. HEART: Reveals first and second heart sounds. No gallop. No murmur. ABDOMEN: Soft. EXTREMITIES: Did not reveal any edema. Peripheral pulses are felt. LABORATORY DATA: Showed a hemoglobin of 11.6, potassium is 3.9, creatinine is 1.2. EKG shows sinus rhythm, right bundle-branch block, nonspecific ST-T wave changes. ASSESSMENT: 1. Acute on chronic systolic heart failure. 2. Hypertension. 3. Mild nonobstructive coronary artery disease. 4. Elevated troponin. 5. Type 2 myocardial infarction secondary to acute pulmonary edema. PLAN: See my orders. I will obtain a 2D echo. Transfer him out of ICU. MMODL / IJN: [id number] /
[2024-06-02 05:52] LABS: Basophils % (A) 0 %; Eosinophils # (A) 0.1 k/uL (0-0.7); Eosinophils % (A) 2 %; HCT 38.1 % (39.0-53.0); HGB 12.5 gm/dL (13.0-17.5); Lymphocytes # (A) 1.2 k/uL (1.0-4.8); Lymphocytes % (A) 16 %; MCH 31.9 pg (25.0-35.0); MCHC 32.8 g/dL (31.0-37.0); MCV 97.1 fL (80.0-100.0); Mean Platelet Volume 8.4; Monocytes # (A) 0.6 k/uL (0-1.0); Monocytes % (A) 9 %; Neutrophils # (A) 5.3 k/uL (1.3-7.7); Neutrophils % (A) 72 %; Platelet Count 165 k/uL (150-450); RBC 3.92 m/uL (4.30-5.90); RDW 13.3 % (11.5-15.5); WBC 7.4 k/uL (3.8-10.6)
[2024-06-02 06:00] LABS: African American GFR (CKD) 55 (>60 ml/min/1.73 sqM); Anion Gap 5 mmol/L; Blood Urea Nitrogen 27 mg/dL (9-20); Calcium 9.2 mg/dL (8.4-10.2); Carbon Dioxide 30 mmol/L (22-30); Chloride 102 mmol/L (98-107); Glucose 108 mg/dL (74-99); Non-African American GFR(CKD) 48 (>60 ml/min/1.73 sqM); Potassium 3.3 mmol/L (3.5-5.1); Sodium 137 mmol/L (137-145)
[2024-06-02] MEDS ORDERED: Potassium Replacement Protocol 1 EACH MISC MISCELLANE PRN (06:04)
[2024-06-02] MEDS: POTASSIUM CHLORIDE ER 20 MEQ TAB.ER PO SCH (06:34)
[2024-06-02] MEDS: SPIRONOLACTONE 25 MG TAB PO SCH (09:12)
[2024-06-02] MEDS: FUROSEMIDE 10 MG/ML 4 ML VIAL IV SCH (09:12)
[2024-06-02] MEDS ORDERED: POTASSIUM CHLORIDE ER 20 MEQ TAB.ER PO STA (10:06)
--- NOTE | 2024-06-02 10:06 | P.PN ---
Subjective This is a pleasant 78 years old male with past medical history of multiple medical problems as below. Patient presents because of worsening dyspnea over a few days associated with coughing for about 2 weeks with her to bring phlegm up. Patient denies chest pain. No specific GI/ symptoms. No headache dizziness weakness or numbness Patient had a fracture of his right leg status post external fixation done in another hospital. However no issue with it and pain looks controlled He denies smoking alcohol or illicit drugs Patient is hemodynamically stable, afebrile, last night he has with the BiPAP when he was tachypneic with breathing rate around 24 has unremarkable CBC, BMP, LFT, INR. Hemoglobin 12.6 D-dimer elevated 0.92 Troponin is elevated 0.314 and 0.24 proBNP is elevated 6600 Chest x-ray showing bilateral infiltrates suspicious for CHF CTA of the lung is negative for acute PE but there is cardiomegaly with pulmonary vascular congestion Atelectasis versus pneumonia of the lower lobes EKG showing ectopic atrial rhythm at 93. Influenza A and type B, RSV, SARS (coronavirus) areundetected Patient was admitted to the ICU and started on Lasix drip, heparin drip and nitro drip 06/02 Patient is improving, no dyspnea or chest pain today Hemodynamically stable. He is saturating 95% on room air Hemoglobin 12.5 Creatinine 1.39, potassium 3.3. Echocardiogram done today pending results Objective - Vital Signs Vital signs: Vital Signs Temp 97.6 F 06/02/24 08:00 Pulse 76 06/02/24 08:00 Resp 16 06/02/24 08:00 BP 109/68 06/02/24 08:00 Pulse Ox 95 06/02/24 08:00 FiO2 21 06/01/24 23:00 Intake & Output 06/01/24 06/02/24 06/02/24 18:59 06:59 18:59 Intake Total 138.6 Output Total 2374 2074 Balance -4 Weight 111.6 kg Intake: Intake, IV Titration 18.6 Amount Nitroglycerin-D5w Pmx 50 18.6 mg In Dextrose/Water 1 250ml.bag @ 5 MCG/MIN 1.5 mls/hr IV .Q24H [facility] Rx#: [id number] Oral 120 Output: Urine 2374 2074 Other: Voiding Method Indwelling Catheter Indwelling Catheter Indwelling Catheter - Exam GENERAL: The patient is alert and oriented x3, not in any acute distress. Well developed, well nourished. HEENT: Pupils are round and equally reacting to light. EOMI. No scleral icterus. No conjunctival pallor. Normocephalic, atraumatic. No pharyngeal erythema. No thyromegaly. CARDIOVASCULAR: S1 and S2 present. No murmurs, rubs, or gallops. PULMONARY: Chest is clear to auscultation, no wheezing , no crackles. ABDOMEN: Soft, nontender, nondistended, normoactive bowel sounds. No palpable organomegaly. MUSCULOSKELETAL: No joint swelling or deformity. EXTREMITIES: No cyanosis, clubbing, or pedal edema. NEUROLOGICAL: Gross neurological examination did not reveal any focal deficits. SKIN: No rashes. no petechiae. - Labs CBC & Chem 7: 06/02/24 05:36 06/02/24 05:36 Labs: Abnormal Lab Results - Last 24 Hours (Table) 06/01/24 06/02/24 06/02/24 Range/Units 16:30 05:36 05:36 RBC 3.92 L (4.30-5.90) m/uL Hgb 12.5 L (13.0-17.5) gm/dL Hct 38.1 L (39.0-53.0) % Potassium 3.3 L (3.5-5.1) mmol/L BUN 27 H (9-20) mg/dL Creatinine 1.39 H (0.66-1.25) mg/dL Glucose 108 H (74-99) mg/dL POC Glucose (mg/dL) 128 H (70-110) mg/dL
[2024-06-02] MEDS: ASPIRIN 81 MG PO SCH (11:04)
--- NOTE | 2024-06-02 11:14 | P.PN ---
Subjective Progress Note Date: 06/02/24 Principal diagnosis: Acute hypoxic respiratory failure secondary to acute pulmonary edema/congestive heart failure, acute on chronic systolic congestive heart failure Patient is a 78-year-old male with past medical history significant for diabetes mellitus, hyperlipidemia, hypertension, obesity, obstructive sleep apnea with home CPAP, renal CA with previous left-sided nephrectomy, former tobacco smoker. Of note, patient recently had a fall in October, sustained significant displaced fractures to his right lower extremity, s/p surgical repair, with external fixator. Patient presented to the emergency department yesterday with a chief complaint of progressively worsening shortness of breath over the last couple days. Does state that approximately 2 weeks ago he did have a "cold". Endorses cough, mostly nonproductive. Denies sick contacts. Denies fevers, chills, sputum production, chest pain, hemoptysis. These symptoms did initially improve, followed by significant shortness of breath over the last 2 days. Denies chest pain, heart palpitations, syncopal events, lower extremity swelling, orthopnea. He arrived in the emergency department in a state of respiratory distress, and was originally placed on BiPAP. Chest x-ray done admission consistent with pulmonary edema. Follow-up chest CT angio did not show any evidence of acute pulmonary embolism. There is cardiomegaly, small bilateral pleural effusions, right greater than left interlobular septal thick ening suggestive of pulmonary edema. Bibasilar compressive atelectasis. Mildly enlarged mediastinal lymph nodes. CBC unremarkable for leukocytosis. CMP on arrival: Sodium 137, potassium 4.4, chloride 108, serum bicarb 21, BUN 21, creatinine 1.2, glucose 111. LFTs unremarkable. Negative for influenza, RSV, COVID. EKG: Sinus rhythm, first degree AV block, RBBB pattern, minimal ST depressions in 2, 3, aVF as well as, chronic T wave inversions. Serial troponins elevated at 0.31, 0.24, and 0.29 respectively. NT proBNP elevated at 6600. Patient was placed on a Lasix infusion at 10 mg/h in the ED. Also, on a nitroglycerin infusion at 5 mcg/min, and heparin infusion per protocol. Patient is currently being evaluated in the intensive care unit. He remains on BiPAP with settings 14/7 and FiO2 50%. Respiratory rate is nontachypneic and nonlabored breathing pattern. Tidal volumes around 700-900 mL. An indwelling urinary catheter was placed, urine is slightly blood-tinged. A total of 1.7 L has been diuresed so far. Patient today on 06/02/2024, remains in the ICU, remains on diuretics however he is on IV Lasix instead of Lasix infusion, continues to do well, continues to diurese, patient had -8 L of fluid balance over the last 24 hours. Clinically the patient is doing great much better, he is on room air, not in any distress. Hence my plan is to continue to diurese however Lasix could be cut down further to 40 mg twice daily and Aldactone 25 mg daily. Clinically the patient had a dramatic improvement since admission, chest x-ray is showing significant improvement. WBC count is 7.4 hemoglobin 12.5 basic metabolic profile showed low potassium of 3.3, creatinine is up a bit at 1.39 today compared to 1.27 yesterday hence I believe cutting down the Lasix a bit would be quite helpful Objective - Vital Signs Vital signs: Vital Signs Temp 97.6 F 06/02/24 08:00 Pulse 76 06/02/24 08:00 Resp 16 06/02/24 08:00 BP 109/68 06/02/24 08:00 Pulse Ox 95 06/02/24 08:00 FiO2 21 06/01/24 23:00 Intake & Output 06/01/24 06/02/24 06/02/24 18:59 06:59 18:59 Intake Total 138.6 Output Total 2375 2075 1850 Balance -2235.4 -2074 Weight 111.6 kg Intake: Intake, IV Titration 18.6 Amount Nitroglycerin-D5w Pmx 50 18.6 mg In Dextrose/Water 1 250ml.bag @ 5 MCG/MIN 1.5 mls/hr IV .Q24H [facility] Rx#: [id number] Oral 120 Output: Urine 2375 2075 1850 Other: Voiding Method Indwelling Catheter Indwelling Catheter Indwelling Catheter - Exam GENERAL EXAM: Alert, 78--year-old in no distress on room air HEAD: Normocephalic and atraumatic EYES: Normal reaction of pupils, equal size. NOSE: Clear with pink turbinates. THROAT: No erythema or exudates. NECK: No masses, no JVD. CHEST: No chest wall deformity. LUNGS: Clear throughout, no crackles rhonchi or wheezes CVS: S1 and S2 normal with no audible murmur, regular rhythm. No extra heart sounds ABDOMEN: No hepatosplenomegaly, active bowel sounds, no guarding or rigidity. SKIN: No rashes CENTRAL NERVOUS SYSTEM: Alert oriented x 3 no gross focal deficit EXTREMITIES: Moving, no edema, no cyanosis - Labs CBC & Chem 7: 06/02/24 05:36 06/02/24 05:36 Labs: Abnormal Lab Results - Last 24 Hours (Table) 06/01/24 06/02/24 06/02/24 Range/Units 16:30 05:36 05:36 RBC 3.92 L (4.30-5.90) m/uL Hgb 12.5 L (13.0-17.5) gm/dL Hct 38.1 L (39.0-53.0) % Potassium 3.3 L (3.5-5.1) mmol/L BUN 27 H (9-20) mg/dL Creatinine 1.39 H (0.66-1.25) mg/dL Glucose 108 H (74-99) mg/dL POC Glucose (mg/dL) 128 H (70-110) mg/dL Assessment and Plan Assessment: Pression: Acute hypoxemic respiratory failure, secondary to acute on chronic systolic c ongestive heart failure Elevated troponins, rule out non-ST elevation History of mild nonobstructive CAD, Heart catheterization done July, showing mostly mild nonobstructive disease involving the LAD, no significant stenosis or occlusive disease was reported. History of diabetes mellitus, type 2 History of hypertension History of hyperlipidemia Obesity, with a BMI of 36.6 kg/m History of obstructive sleep apnea, uses nasal CPAP at home History of renal cancer and previous nephrectomy Former tobacco dependence History of traumatic right tibia-fibula fracture, status post surgical repair, with external fixation Recommendation: Transfer patient to a monitored bed on cardiology floor Continue Lasix however the dose could be cut down to 40 mg twice daily and Aldactone 25 mg daily Continue to monitor electrolytes and renal profile Patient to use his on BiPAP at nighttime. Will continue to follow Time with Patient: Less than 30
--- NOTE | 2024-06-02 12:51 | P.PN ---
Subjective Progress Note Date: 06/02/24 Patient presented to the hospital because of increased worsening shortness of breath. Cardiology was consulted for CHF management. He had mild elevation of troponin however he had a recent heart catheterization which only showed mild to moderate CAD. SUBJECTIVE: On today's evaluation patient reports feeling much better. Blood pressure 116/56, heart rate is 80, sinus rhythm on telemetry. Kidney function is slightly worse as compared to yesterday today creatinine 1.39 yesterday to 1.27. PHYSICAL EXAMINATION Vital signs reviewed. Head: Normocephalic. Eyes: Sclerae nonicteric. Neck: Brisk carotid upstroke, no jugular venous distention. Lungs: Clear to auscultation. Heart: Regular rate and rhythm, S1-S2, no S3, no murmur or rub. Abdomen: Soft nontender, bowel sounds present, Extremities: No edema, Neuro: Alert, oriented, no focal neurological deficits. Detailed neuro exam was not performed. ASSESSMENT Elevated troponin with a downtrending pattern, likely type II NSTEMI Acute CHF exacerbation SUDARSHAN Bilateral obstructive CAD PLAN Continue aspirin, Lipitor Increase Coreg to 6.25 mg twice daily. Continue amlodipine 10 mg daily Discontinue hydralazine Discontinue IV Lasix. Start Bumex 1 mg p.o. daily from tomorrow Start Farxiga 10 mg daily. Reduce Aldactone to 25 mg daily. Patient can be downgraded from ICU to a regular I await echocardiogram results Corby Davidson MD, FACC, RPVI Thank you for allowing [facility] to participate in this patient's care. Please contact us in case of any followup questions. Objective - Vital Signs Vital signs: Vital Signs Temp 98.0 F 06/02/24 12:00 Pulse 85 06/02/24 12:00 Resp 16 06/02/24 12:00 BP 116/56 06/02/24 12:00 Pulse Ox 98 06/02/24 12:00 FiO2 21 06/01/24 23:00 Intake & Output 06/01/24 06/02/24 06/02/24 18:59 06:59 18:59 Intake Total 138.6 Output Total 7533 2 1850 Balance -2236.4 -2074 Weight 111.6 kg Intake: Intake, IV Titration 18.6 Amount Nitroglycerin-D5w Pmx 50 18.6 mg In Dextrose/Water 1 250ml.bag @ 5 MCG/MIN 1.5 mls/hr IV .Q24H [facility] Rx#: [id number] Oral 120 Output: Urine 1828 2198 [id number] Other: Voiding Method Indwelling Catheter Indwelling Catheter Indwelling Catheter - Labs CBC & Chem 7: 06/02/24 05:36 06/02/24 05:36 Labs: Abnormal Lab Results - Last 24 Hours (Table) 06/01/24 06/02/24 06/02/24 Range/Units 16:30 05:36 05:36 RBC 3.92 L (4.30-5.90) m/uL Hgb 12.5 L (13.0-17.5) gm/dL Hct 38.1 L (39.0-53.0) % Potassium 3.3 L (3.5-5.1) mmol/L BUN 27 H (9-20) mg/dL Creatinine 1.39 H (0.66-1.25) mg/dL Glucose 108 H (74-99) mg/dL POC Glucose (mg/dL) 128 H (70-110) mg/dL
[2024-06-02 16:31] LABS: Glucose,Whole Blood 89 mg/dL (70-110)
[2024-06-02] MEDS: carvediloL 6.25 MG TAB PO SCH (16:37)
--- NOTE | 2024-06-02 17:01 | CA ---
Transthoracic Echo Report Name: Jose Mathews Age: 78 Gender: M : 1945 Exam Date: 06/02/2024 09:28 Exam Location: [place] [facility] Ht (in): 72 Wt (lb): 270 Ordering Physician: Santiago Farias Attending/Referring Phys: Radio Commentator Samantha Chin RDCS Procedure CPT: Indications: evaluate LV function Cardiac Hx: Technical Quality: Fair Contrast 1: Definity Total Dose (mL): 1 Contrast 2: Total Dose (mL): MEASUREMENTS (Male / Female) Normal Values 2D ECHO LVOT Diameter 2.3 cm LV Diastolic Volume MOD BP 281.9 cm??? 67 - 155 / 56 - 104 cm??? LV Systolic Volume MOD BP 219.2 cm??? 22 - 58 / 19 - 49 cm??? LV Ejection Fraction MOD BP 22.3 % >= 55 % LV Cardiac Index MOD BP 1780.3 cm???/min???m??? LV Diastolic Volume MOD 4C 280.2 cm??? LV Systolic Volume MOD 4C 211.4 cm??? LV Ejection Fraction MOD 4C 24.6 % LV Cardiac Index MOD 4C 1952.2 cm???/min???m??? LV Diastolic Length 4C 10.0 cm LV Systolic Length 4C 9.3 cm LV Diastolic Volume MOD 2C 258.2 cm??? LV Systolic Volume MOD 2C 185.0 cm??? LV Ejection Fraction MOD 2C 28.4 % LV Cardiac Index MOD 2C 2076.0 cm???/min???m??? LV Diastolic Length 2C 10.3 cm LV Systolic Length 2C 8.7 cm LA Volume 128.4 cm??? 18 - 58 / 22 - 52 cm??? LA Volume Index 50.6 cm???/m??? 16 - 28 cm???/m??? Ascending Aorta Diameter 3.6 cm DOPPLER AV Peak Velocity 148.7 cm/s AV Peak Gradient 8.8 mmHg AV Mean Velocity 107.4 cm/s AV Mean Gradient 5.0 mmHg AV Velocity Time Integral 32.4 cm LVOT Peak Velocity 121.1 cm/s LVOT Peak Gradient 5.9 mmHg LVOT Velocity Time Integral 24.3 cm LVOT Stroke Volume 97.9 cm??? LVOT Stroke Volume Index 40.4 ml/m??? LVOT Cardiac Index 2775.9 cm???/min???m??? AV Area Cont Eq vti 3.0 cm??? AV Area Cont Eq pk 3.3 cm??? MV Area PHT 4.3 cm??? Mitral E Point Velocity 80.9 cm/s Mitral A Point Velocity 73.2 cm/s Mitral E to A Ratio 1.1 MV Deceleration Time 178.5 ms TR Peak Velocity 215.5 cm/s TR Peak Gradient 18.6 mmHg Right Atrial Pressure 5.0 mmHg Pulmonary Artery Systolic Pressu 23.6 mmHg Right Ventricular Systolic Press 23.6 mmHg PV Peak Velocity 79.2 cm/s PV Peak Gradient 2.5 mmHg FINDINGS Left Ventricle Left ventricular ejection fraction is estimated at 25-30 %. Severely increased left ventricular diastolic volume. Severely increased left ventricular systolic volume. Severely decreased left ventricular ejection fraction with severe global hypokinesis. Right Ventricle Moderate right ventricular dilatation with normal function. Right ventricular systolic pressure within normal limits. Right Atrium Severe right atrial dilatation. Left Atrium Severely increased left atrial volume. Moderately increased left atrial area. Mitral Valve Mitral valve thickened. Mitral annular calcification. No evidence for mitral valve prolapse. No mitral stenosis. Mild mitral regurgitation. Aortic Valve Trileaflet aortic valve. No aortic valve stenosis or regurgitation. Tricuspid Valve Structurally normal tricuspid valve. No tricuspid stenosis. Trace tricuspid regurgitation. Pulmonic Valve Pulmonic valve not well visualized. No pulmonic stenosis. No pulmonic regurgitation. Pericardium No pericardial effusion. Aorta Normal size aortic root and proximal ascending aorta. CONCLUSIONS Severe LV systolic dysfunction Mitral regurgitation Previewed by: Dr. Noah Null MD (Electronically Signed) Final Date: 02 June 2024 17:00
[2024-06-02 19:37] LABS: Glucose,Whole Blood 115 mg/dL (70-110)
[2024-06-02] MEDS: ATORVASTATIN 40 MG TAB PO SCH (20:55)
[2024-06-03 06:16] LABS: Glucose,Whole Blood 106 mg/dL (70-110)
[2024-06-03] MEDS: SPIRONOLACTONE 25 MG TAB PO SCH (08:59)
[2024-06-03] MEDS: DAPAGLIFLOZIN PROPANEDIOL 10 MG TABLET PO SCH (09:02)
[2024-06-03] MEDS: BUMETANIDE 1 MG TAB PO SCH (09:08)
--- NOTE | 2024-06-03 11:48 | P.PN ---
Subjective Progress Note Date: 06/03/24 Principal diagnosis: Acute hypoxic respiratory failure secondary to acute pulmonary edema/congestive heart failure, acute on chronic systolic congestive heart failure Patient is a 78-year-old male with past medical history significant for diabetes mellitus, hyperlipidemia, hypertension, obesity, obstructive sleep apnea with home CPAP, renal CA with previous left-sided nephrectomy, former tobacco smoker. Of note, patient recently had a fall in October, sustained significant displaced fractures to his right lower extremity, s/p surgical repair, with external fixator. Patient presented to the emergency department yesterday with a chief complaint of progressively worsening shortness of breath over the last couple days. Does state that approximately 2 weeks ago he did have a "cold". Endorses cough, mostly nonproductive. Denies sick contacts. Denies fevers, chills, sputum production, chest pain, hemoptysis. These symptoms did initially improve, followed by significant shortness of breath over the last 2 days. Denies chest pain, heart palpitations, syncopal events, lower extremity swelling, orthopnea. He arrived in the emergency department in a state of respiratory distress, and was originally placed on BiPAP. Chest x-ray done admission consistent with pulmonary edema. Follow-up chest CT angio did not show any evidence of acute pulmonary embolism. There is cardiomegaly, small bilateral pleural effusions, right greater than left interlobular septal thick ening suggestive of pulmonary edema. Bibasilar compressive atelectasis. Mildly enlarged mediastinal lymph nodes. CBC unremarkable for leukocytosis. CMP on arrival: Sodium 137, potassium 4.4, chloride 108, serum bicarb 21, BUN 21, creatinine 1.2, glucose 111. LFTs unremarkable. Negative for influenza, RSV, COVID. EKG: Sinus rhythm, first degree AV block, RBBB pattern, minimal ST depressions in 2, 3, aVF as well as, chronic T wave inversions. Serial troponins elevated at 0.31, 0.24, and 0.29 respectively. NT proBNP elevated at 6600. Patient was placed on a Lasix infusion at 10 mg/h in the ED. Also, on a nitroglycerin infusion at 5 mcg/min, and heparin infusion per protocol. Patient is currently being evaluated in the intensive care unit. He remains on BiPAP with settings 14/7 and FiO2 50%. Respiratory rate is nontachypneic and nonlabored breathing pattern. Tidal volumes around 700-900 mL. An indwelling urinary catheter was placed, urine is slightly blood-tinged. A total of 1.7 L has been diuresed so far. Patient today on 06/02/2024, remains in the ICU, remains on diuretics however he is on IV Lasix instead of Lasix infusion, continues to do well, continues to diurese, patient had -8 L of fluid balance over the last 24 hours. Clinically the patient is doing great much better, he is on room air, not in any distress. Hence my plan is to continue to diurese however Lasix could be cut down further to 40 mg twice daily and Aldactone 25 mg daily. Clinically the patient had a dramatic improvement since admission, chest x-ray is showing significant improvement. WBC count is 7.4 hemoglobin 12.5 basic metabolic profile showed low potassium of 3.3, creatinine is up a bit at 1.39 today compared to 1.27 yesterday hence I believe cutting down the Lasix a bit would be quite helpful Seen today on 06/03/2024, patient is feeling much better, remains on room air, patient had significant improvement in his congestive heart failure since presentation. Echocardiogram showed severe LV dysfunction patient was seen by cardiology yesterday, and recommended increase Coreg, discontinued hydralazine, kept him on aspirin and Lipitor, also kept him on fark [employer] and reduced Aldactone to 25 mg daily also placed on Bumex 1 mg p.o. daily. Patient has been cleared basically for discharge by cardiology and he will need to have outpatient follow-up. Considering his severe LV dysfunction patient will likely require AICD placement on outpatient basis Objective - Vital Signs Vital signs: Vital Signs Temp 97.5 F L 06/03/24 09:00 Pulse 77 06/03/24 09:00 Resp 17 06/03/24 09:00 BP 129/60 06/03/24 09:00 Pulse Ox 94 L 06/03/24 09:00 FiO2 21 06/01/24 23:00 Intake & Output 06/02/24 06/03/24 06/03/24 18:59 06:59 18:59 Intake Total 200 450 Output Total 2475 300 Balance -2275 450 -300 Weight 109.8 kg Intake: Oral 450 Tube Feeding 200 Output: Urine 2475 300 Other: Voiding Method Indwelling Catheter Indwelling Catheter Indwelling Catheter # Bowel Movements 1 - Exam GENERAL EXAM: Alert, 78--year-old in no distress on room air HEAD: Normocephalic and atraumatic EYES: Normal reaction of pupils, equal size. NOSE: Clear with pink turbinates. THROAT: No erythema or exudates. NECK: No masses, no JVD. CHEST: No chest wall deformity. LUNGS: Clear throughout, no crackles rhonchi or wheezes CVS: S1 and S2 normal with no audible murmur, regular rhythm. No extra heart sounds ABDOMEN: No hepatosplenomegaly, active bowel sounds, no guarding or rigidity. SKIN: No rashes CENTRAL NERVOUS SYSTEM: Alert oriented x 3 no gross focal deficit EXTREMITIES: No clubbing edema or cyanosis - Labs CBC & Chem 7: 06/02/24 05:36 06/02/24 14:24 Labs: Abnormal Lab Results - Last 24 Hours (Table) 06/02/24 Range/Units 19:35 POC Glucose (mg/dL) 115 H (70-110) mg/dL Assessment and Plan Assessment: Pression: Acute hypoxemic respiratory failure, secondary to acute on chronic systolic congestive heart failure Elevated troponins, rule out non-ST elevation History of mild nonobstructive CAD, Heart catheterization done July, showing mostly mild nonobstructive disease involving the LAD, no significant stenosis or occlusive disease was reported. History of diabetes mellitus, type 2 History of hypertension History of hyperlipidemia Obesity, with a BMI of 36.6 kg/m History of obstructive sleep apnea, uses nasal CPAP at home History of renal cancer and previous nephrectomy Former tobacco dependence History of traumatic right tibia-fibula fracture, status post surgical repair, with external fixation Recommendation: Patient to continue diuretics Patient to be cleared by cardiology for discharge Patient to definitely follow-up with cardiology considering his severe LV dysfunction on outpatient basis Will clear the patient for discharge if cleared by other consultants on the case. Patient may eventually require AICD placement considering his severe LV dysfunction Patient to use his on BiPAP at nighttime. Will continue to follow Time with Patient: Less than 30
[2024-06-03 11:51] LABS: Glucose,Whole Blood 114 mg/dL (70-110)
--- NOTE | 2024-06-03 15:50 | P.PN ---
Subjective This is a pleasant 78 years old male with past medical history of multiple medical problems as below. Patient presents because of worsening dyspnea over a few days associated with coughing for about 2 weeks with her to bring phlegm up. Patient denies chest pain. No specific GI/ symptoms. No headache dizziness weakness or numbness Patient had a fracture of his right leg status post external fixation done in another hospital. However no issue with it and pain looks controlled He denies smoking alcohol or illicit drugs Patient is hemodynamically stable, afebrile, last night he has with the BiPAP when he was tachypneic with breathing rate around 24 has unremarkable CBC, BMP, LFT, INR. Hemoglobin 12.6 D-dimer elevated 0.92 Troponin is elevated 0.314 and 0.24 proBNP is elevated 6600 Chest x-ray showing bilateral infiltrates suspicious for CHF CTA of the lung is negative for acute PE but there is cardiomegaly with pulmonary vascular congestion Atelectasis versus pneumonia of the lower lobes EKG showing ectopic atrial rhythm at 93. Influenza A and type B, RSV, SARS (coronavirus) areundetected Patient was admitted to the ICU and started on Lasix drip, heparin drip and nitro drip 06/02 Patient is improving, no dyspnea or chest pain today Hemodynamically stable. He is saturating 95% on room air Hemoglobin 12.5 Creatinine 1.39, potassium 3.3. Echocardiogram done today pending results 06/03 Patient clinically doing well, dyspnea improved leg swelling improved No chest pain no other new complaint Echocardiogram remains pending IV Lasix was discontinued and patient is going to be started on Bumex tomorrow Also hydralazine was discontinued and Coreg dose was increased Continue monitoring Objective - Vital Signs Vital signs: Vital Signs Temp 97.5 F L 06/03/24 09:00 Pulse 68 06/03/24 12:00 Resp 18 06/03/24 12:00 BP 131/69 06/03/24 12:00 Pulse Ox 94 L 06/03/24 12:00 FiO2 21 06/01/24 23:00 Intake & Output 06/02/24 06/03/24 06/03/24 18:59 06:59 18:59 Intake Total 200 450 Output Total 2475 1150 Balance -2275 450 -1150 Weight 109.8 kg 115.694 kg Intake: Oral 450 Tube Feeding 200 Output: Urine 2475 1150 Other: Voiding Method Indwelling Catheter Indwelling Catheter Indwelling Catheter # Bowel Movements 1 - Exam GENERAL: The patient is alert and oriented x3, not in any acute distress. Well developed, well nourished. HEENT: Pupils are round and equally reacting to light. EOMI. No scleral icterus. No conjunctival pallor. Normocephalic, atraumatic. No pharyngeal erythema. No thyromegaly. CARDIOVASCULAR: S1 and S2 present. No murmurs, rubs, or gallops. PULMONARY: Chest is clear to auscultation, no wheezing , no crackles. ABDOMEN: Soft, nontender, nondistended, normoactive bowel sounds. No palpable organomegaly. MUSCULOSKELETAL: No joint swelling or deformity. EXTREMITIES: No cyanosis, clubbing, or pedal edema. NEUROLOGICAL: Gross neurological examination did not reveal any focal deficits. SKIN: No rashes. no petechiae. - Labs CBC & Chem 7: 06/02/24 05:36 06/02/24 14:24 Labs: Abnormal Lab Results - Last 24 Hours (Table) 06/02/24 06/03/24 Range/Units 19:35 11:50 POC Glucose (mg/dL) 115 H 114 H (70-110) mg/dL Assessment and Plan Assessment: Acute CHF, unknown ejection fraction Elevated troponin, rule out acute coronary syndrome History of right leg fracture status post external fixator about 4 months ago Diabetes mellitus Hypertension Hyperlipidemia Plan: Lasix was discontinued. Start Bumex 1 mg tomorrow Heparin drip was discontinued Continue with Coreg, Entresto and Aldactone Patient can be downgraded to general medical floor Cardiology and pulmonary team consult Labs and medication were reviewed.. Continue same treatment. Continue with sy mptomatic treatment. Resume home medication. Monitor lytes and vitals. DVT and GI prophylaxis. Further recommendations depends on the clinical course of the patient DVT prophylaxis: heparin Prognosis is guarded
--- NOTE | 2024-06-03 15:58 | P.PN ---
Subjective Progress Note Date: 06/03/24 Patient presented to the hospital because of increased worsening shortness of breath. Cardiology was consulted for CHF management. He had mild elevation of troponin however he had a recent heart catheterization which only showed mild to moderate CAD. SUBJECTIVE: On today's evaluation patient reports feeling much better. Blood pressure 116/56, heart rate is 80, sinus rhythm on telemetry. Kidney function is slightly worse as compared to yesterday today creatinine 1.39 yesterday to 1.27. 06/03/2024 BP 120/58, heart rate 65 beats minute, appears euvolemic, tolerating current medical regimen, creatinine 1.39 yesterday. No labs from today. PHYSICAL EXAMINATION Vital signs reviewed. Head: Normocephalic. Eyes: Sclerae nonicteric. Neck: Brisk carotid upstroke, no jugular venous distention. Lungs: Clear to auscultation. Heart: Regular rate and rhythm, S1-S2, no S3, no murmur or rub. Abdomen: Soft nontender, bowel sounds present, Extremities: No edema, Neuro: Alert, oriented, no focal neurological deficits. Detailed neuro exam was not performed. ASSESSMENT Elevated troponin with a downtrending pattern, likely type II NSTEMI Acute CHFrEF exacerbation Cardiomyopathy, likely nonischemic, LVEF 25 to 30% dilated LV, SUDARSHAN Type 2 diabetes Obesity Mild nonobstructive CAD Cardiac testing Echo shows EF 25 to 30%, dilated LV, moderate RV dilatation, mild MR PLAN Continue aspirin, Lipitor Continue Coreg to 6.25 mg twice daily. Start Entresto 24/26 mg twice daily Discontinue amlodipine 10 mg daily, Discontinue hydralazine Continue Bumex 1 mg p.o. daily from tomorrow, Farxiga 10 mg daily. Adactone to 25 mg daily. Patient can be downgraded from ICU to a regular If kidney function stays stable, blood pressure is stable, consider discharging tomorrow a.m. Recommend close outpatient follow-up with recommended CMP and NT- proBNP levels to be checked in 1 week I would recommend that he should not be on pioglitazone considering his congestive heart failure. I would recommend him to be on GLP-1 analog and other antidiabetic medications. Objective - Vital Signs Vital signs: Vital Signs Temp 97.5 F L 06/03/24 09:00 Pulse 68 06/03/24 12:00 Resp 18 06/03/24 12:00 BP 131/69 06/03/24 12:00 Pulse Ox 94 L 06/03/24 12:00 FiO2 21 06/01/24 23:00 Intake & Output 06/02/24 06/03/24 06/03/24 18:59 06:59 18:59 Intake Total 200 450 Output Total 2475 1150 Balance -2275 450 -1150 Weight 109.8 kg 115.694 kg Intake: Oral 450 Tube Feeding 200 Output: Urine 2475 1150 Other: Voiding Method Indwelling Catheter Indwelling Catheter Indwelling Catheter # Bowel Movements 1 - Labs CBC & Chem 7: 06/02/24 05:36 06/02/24 14:24 Labs: Abnormal Lab Results - Last 24 Hours (Table) 06/02/24 06/03/24 Range/Units 19:35 11:50 POC Glucose (mg/dL) 115 H 114 H (70-110) mg/dL
[2024-06-03 19:55] LABS: Glucose,Whole Blood 144 mg/dL (70-110)
[2024-06-03] MEDS: SACUBITRIL/VALSARTAN 24 MG-26 MG TABLET PO SCH (20:13)
[2024-06-04 04:46] VITALS: RESP 18
[2024-06-04 06:06] LABS: Glucose,Whole Blood 150 mg/dL (70-110)
[2024-06-04 06:11] LABS: Glucose,Whole Blood 124 mg/dL (70-110)
--- NOTE | 2024-06-04 07:35 | XR ---
EXAMINATION TYPE: XR chest 1V portable DATE OF EXAM: 06/04/2024 4:55 AM COMPARISON: Chest radiographs from 06/01/2024 CLINICAL INDICATION: Male, 78 years old with history of assess lungs; TECHNIQUE: XR chest 1V portable Frontal view of the chest. FINDINGS: Lungs/Pleura: There is no evidence of pleural effusion, focal consolidation, or pneumothorax. Pulmonary vascularity: Unremarkable. Heart/mediastinum: Cardiomediastinal silhouette is unremarkable. Musculoskeletal: No acute osseous pathology. IMPRESSION: Stable exam no significant change from 06/01/2024. [facility], , 06/04/2024 7:33 AM
[2024-06-04 09:00] VITALS: TEMP 98.2
[2024-06-04] MEDS ORDERED: amLODIPine 5 MG TAB PO SCH (09:00)
[2024-06-04 10:54] LABS: HCT 45.5 % (39.0-53.0); HGB 14.6 gm/dL (13.0-17.5); MCH 31.4 pg (25.0-35.0); MCHC 32.1 g/dL (31.0-37.0); Mean Platelet Volume 8.7; Platelet Count 254 k/uL (150-450); RBC 4.64 m/uL (4.30-5.90); RDW 13.4 % (11.5-15.5)
[2024-06-04 11:03] LABS: African American GFR (CKD) 54 (>60 ml/min/1.73 sqM); Anion Gap 14 mmol/L; Blood Urea Nitrogen 28 mg/dL (9-20); Calcium 9.3 mg/dL (8.4-10.2); Carbon Dioxide 25 mmol/L (22-30); Chloride 98 mmol/L (98-107); Glucose 201 mg/dL (74-99); Magnesium 2.4 mg/dL (1.6-2.3); Non-African American GFR(CKD) 47 (>60 ml/min/1.73 sqM); Potassium 4.5 mmol/L (3.5-5.1); Sodium 137 mmol/L (137-145)
[2024-06-04 11:06] LABS: NT-Pro-B-Type Natriuretic Pept 2790 pg/mL
[2024-06-04 11:34] LABS: Glucose,Whole Blood 87 mg/dL (70-110)
[2024-06-04 12:04] VITALS: BP 114/56
--- NOTE | 2024-06-04 12:46 | P.PN ---
Subjective HISTORY OF PRESENT ILLNESS: Patient presented to the hospital because of increased worsening shortness of breath. Cardiology was consulted for CHF management. He had mild elevation of troponin however he had a recent heart catheterization which only showed mild to moderate CAD. SUBJECTIVE: On today's evaluation patient reports feeling much better. Blood pressure 116/56, heart rate is 80, sinus rhythm on telemetry. Kidney function is slig htly worse as compared to yesterday today creatinine 1.39 yesterday to 1.27. 06/03/2024 BP 120/58, heart rate 65 beats minute, appears euvolemic, tolerating current medical regimen, creatinine 1.39 yesterday. No labs from today. Above per Dr. Davidson 06/04/2024 Patient examined this morning at the bedside. Patient currently denies chest pain or pressure. He denies shortness of breath. Vital signs are stable. He is hoping to be discharged home today. PHYSICAL EXAM: VITAL SIGNS: Reviewed. GENERAL: Well-developed in no acute distress. NECK: Supple. No JVD or thyromegaly LUNGS: Respirations even and unlabored. Lungs essentially clear to auscultation bilaterally. HEART: Regular rate and rhythm. S1 and S2 heard. EXTREMITIES: Normal range of motion. No clubbing or cyanosis. Peripheral pulses intact. No lower extremity edema ASSESSMENT: Acute on chronic heart failure with reduced EF Elevated troponin, likely type II FL secondary to oxygen supply/demand mismatch Cardiomyopathy, 25 to 30%, suspected to be nonischemic Mild nonobstructive coronary artery disease Acute kidney injury Diabetes Obesity: BMI 34.2 PLAN: Continue current cardiac medications Patient may be discharged home today from a cardiac standpoint Patient to follow-up postdischarge with Dr. Null Nurse practitioner note has been reviewed by physician. Signing provider agrees with the documented findings, assessment, and plan of care documented by CAR ESCORT as a scribe. Objective - Vital Signs Vital signs: Vital Signs Temp 98.2 F 06/04/24 12:00 Pulse 84 06/04/24 12:00 Resp 18 06/04/24 12:00 BP 114/56 06/04/24 12:00 Pulse Ox 96 06/04/24 12:00 FiO2 21 06/01/24 23:00 Intake & Output 06/03/24 06/04/24 06/04/24 18:59 06:59 18:59 Intake Total 480 Output Total 1500 1200 Balance -1500 -1200 480 Weight 115.694 kg 114.5 kg Intake: Oral 480 Output: Urine 1500 1200 Other: Voiding Method Urinal Urinal - Labs CBC & Chem 7: 06/04/24 09:21 06/04/24 09:21 Labs: Abnormal Lab Results - Last 24 Hours (Table) 06/03/24 06/04/24 06/04/24 Range/Units 19:54 06:04 06:06 BUN (9-20) mg/dL Creatinine (0.66-1.25) mg/dL Glucose (74-99) mg/dL POC Glucose (mg/dL) 144 H 150 H 124 H (70-110) mg/dL Magnesium (1.6-2.3) mg/dL 06/04/24 Range/Units 09:21 BUN 28 H (9-20) mg/dL Creatinine 1.41 H (0.66-1.25) mg/dL Glucose 201 H (74-99) mg/dL POC Glucose (mg/dL) (70-110) mg/dL Magnesium 2.4 H (1.6-2.3) mg/dL
[2024-06-04 13:26] VITALS: PULSE 78
--- NOTE | 2024-06-04 15:12 | P.DS ---
Providers Date of admission: 05/31/24 19:46 Expected date of discharge: 06/04/24 Attending physician: Jazmin Varghese Consults: 05/31/24 18:16 Consult Physician Urgent Consulting Provider: Kamaljit Welch Consult Reason/Comments: elevated tropinin Do you want consulting provider notified?: Already Contacted 05/31/24 21:20 Consult Physician Urgent Consulting Provider: Pankaj Rendon Consult Reason/Comments: Respiratory distress, pulmonary edema, non-STEMI Do you want consulting provider notified?: Already Contacted Primary care physician: José Miguel Strickland Hospital Course: Discharge diagnoses: Acute on chronic systolic CHF Cardiomyopathy likely nonischemic with EF 25 to 30%, dilated LV SUDARSHAN: Resolved Diabetes mellitus Mild nonobstructive coronary artery disease Obesity Elevated troponin--demand ischemia History of right leg fracture status post external fixator about 4 months ago Hypertension Hyperlipidemia Patient admitted hospital for worsening dyspnea with cough, admitted hospital for further evaluation and management of elevated troponin, acute on chronic systolic CHF. CTA of the lung was negative for acute PE, showed cardiomegaly with pulmonary vascular congestion EKG showed ectopic atrial rhythm at 93 Viral panel was negative Initially treated with Lasix drip heparin drip and nitro drip Cardiology and pulmonary consulted Patient's fluid status improved with IV diuresis Lasix switched to Bumex at discharge Continued on aspirin, statin, Bumex, Farxiga, Entresto, Aldactone, Coreg at discharge. Discontinued Actos, Norvasc and hydralazine. Hospital course: This is a pleasant 78 years old male with past medical history of multiple medical problems as below. Patient presents because of worsening dyspnea over a few days associated with coughing for about 2 weeks with her to bring phlegm up. Patient denies chest pain. No specific GI/ symptoms. No headache dizziness weakness or numbness Patient had a fracture of his right leg status post external fixation done in another hospital. However no issue with it and pain looks controlled He denies smoking alcohol or illicit drugs Patient is hemodynamically stable, afebrile, last night he has with the BiPAP when he was tachypneic with breathing rate around 24 has unremarkable CBC, BMP, LFT, INR. Hemoglobin 12.6 D-dimer elevated 0.92 Troponin is elevated 0.314 and 0.24 proBNP is elevated 6600 Chest x-ray showing bilateral infiltrates suspicious for CHF CTA of the lung is negative for acute PE but there is cardiomegaly with pulmonary vascular congestion Atelectasis versus pneumonia of the lower lobes EKG showing ectopic atrial rhythm at 93. Influenza A and type B, RSV, SARS (coronavirus) areundetected Patient was admitted to the ICU and started on Lasix drip, heparin drip and nitro drip 06/02 Patient is improving, no dyspnea or chest pain today Hemodynamically stable. He is saturating 95% on room air Hemoglobin 12.5 Creatinine 1.39, potassium 3.3. Echocardiogram done today pending results 06/03 Patient clinically doing well, dyspnea improved leg swelling improved No chest pain no other new complaint Echocardiogram remains pending IV Lasix was discontinued and patient is going to be started on Bumex tomorrow Also hydralazine was discontinued and Coreg dose was increased 06/04 Patient was seen and examined today. Patient feeling better today. Okay to discharge from cardiology and pulmonary perspective. Patient condition vital stable. Patient continued on Entresto, Aldactone, Farxiga, aspirin, statin, Lasix switched to Bumex, increase Coreg dose to 6.25 mg twice daily. Norvasc and hydralazine discontinued due to soft blood pressures. Echocardiogram showed EF 25 to 30%, dilated LV, moderate RV dilatation, mild MR. Actos discontinued at discharge. Please refer to medical assessment for further details Follow-up with PCP in 1 week Follow-up with cardiology in 1 week. Follow-up with pulmonary as outpatient. PHYSICAL EXAMINATION: GENERAL: The patient is A&O x3, NAD HEENT: EOMI, Sclerae anicteric, Moist Mucous membranes Neck: Supple, Non tender, No JVD PULMONARY: Equal breath souds B/L, No wheezing, No crackles. CARDIOVASCULAR: S1, S2 present. No murmurs, rubs, or gallops. ABDOMEN: Soft, nontender, nondistended, normoactive bowel sounds. No guarding or rebound tenderness. MUSCULOSKELETAL: No edema, No cyanosis. No clubbing. Normal ROM. Intact peripheral pulses. NEUROLOGICAL: CN 2-12 grossly intact. No FND SKIN: No rashes. Dictation was produced using [employer] dictation software. please excuse any grammatical, word or spelling errors. Patient Condition at Discharge: Stable Plan - Discharge Summary Discharge Rx Participant: Yes New Discharge Prescriptions: New Spironolactone [Aldactone] 25 mg PO DAILY #30 tab Bumetanide [BUMEX] 1 mg PO DAILY #30 tab Sacubitril/Valsartan [Entresto 24 mg-26 mg Tablet] 1 each PO BID #60 tab carvediloL [Coreg] 6.25 mg PO BID-W/MEALS #60 tab Dapagliflozin Propanediol [Farxiga] 10 mg PO DAILY #30 tab Continue Pravastatin Sodium [Pravachol] 10 mg PO HS Zinc Gluconate [Zinc] 50 mg PO DAILY HYDROcodone/APAP 10-325MG [[place] 10-325] 1 tab PO Q8H PRN PRN Reason: Pain Cholecalciferol [Vitamin D3 (25 Mcg = 1000 Iu)] 25 mcg PO DAILY Gabapentin [Neurontin] 100 mg PO TID Tamsulosin [Flomax] 0.4 mg PO HS DULoxetine HCL [Cymbalta] 40 mg PO DAILY Prevagen 1 cap PO DAILY Hydrocortisone Cream [Hydrocortisone 2.5% Cream] 1 applic TOPICAL BID Glucosam/Rizwan-Msm1/C/[place]/Bosw [Glucosamine-Chondroitin Tablet] 1 tab PO DAILY Multivitamins, Thera [Multivitamin (formulary)] 1 tab PO DAILY Montelukast [Singulair] 10 mg PO DAILY Nystatin 100,000Unit/gm Cream [Mycostatin Cream] 1 applic TOPICAL BID Magnesium Oxide [Magnesium] 500 mg PO DAILY Ascorbic Acid [Vitamin C] 1,000 mg PO DAILY Aspirin EC [Ecotrin Low Dose] 81 mg PO DAILY Discontinued hydrALAZINE HCL [Apresoline] 50 mg PO BID-W/MEALS amLODIPine 10 mg PO DAILY Pioglitazone [Actos] 30 mg PO DAILY Furosemide [Lasix] 40 mg PO DAILY carvediloL [Coreg] 3.125 mg PO BID-W/MEALS Discharge Medication List Pravastatin Sodium [Pravachol] 10 mg PO HS 07/31/15 [History] Cholecalciferol [Vitamin D3 (25 Mcg = 1000 Iu)] 25 mcg PO DAILY 07/24/22 [History] Gabapentin [Neurontin] 100 mg PO TID 07/24/22 [History] HYDROcodone/APAP 10-325MG [[place] 10-325] 1 tab PO Q8H PRN 07/24/22 [History] Multivitamins, Thera [Multivitamin (formulary)] 1 tab PO DAILY 07/24/22 [History] Zinc Gluconate [Zinc] 50 mg PO DAILY 07/24/22 [History] Ascorbic Acid [Vitamin C] 1,000 mg PO DAILY 05/31/24 [History] Aspirin EC [Ecotrin Low Dose] 81 mg PO DAILY 05/31/24 [History] DULoxetine HCL [Cymbalta] 40 mg PO DAILY 05/31/24 [History] Glucosam/Rizwan-Msm1/C/[place]/Bosw [Glucosamine-Chondroitin Tablet] 1 tab PO DAILY 05/31/24 [History] Hydrocortisone Cream [Hydrocortisone 2.5% Cream] 1 applic TOPICAL BID 05/31/24 [History] Magnesium Oxide [Magnesium] 500 mg PO DAILY 05/31/24 [History] Montelukast [Singulair] 10 mg PO DAILY 05/31/24 [History] Nystatin 100,000Unit/gm Cream [Mycostatin Cream] 1 applic TOPICAL BID 05/31/24 [History] Prevagen 1 cap PO DAILY 05/31/24 [History] Tamsulosin [Flomax] 0.4 mg PO HS 05/31/24 [History] Bumetanide [BUMEX] 1 mg PO DAILY #30 tab 06/04/24 [Rx] Dapagliflozin Propanediol [Farxiga] 10 mg PO DAILY #30 tab 06/04/24 [Rx] Sacubitril/Valsartan [Entresto 24 mg-26 mg Tablet] 1 each PO BID #60 tab 06/04/24 [Rx] Spironolactone [Aldactone] 25 mg PO DAILY #30 tab 06/04/24 [Rx] carvediloL [Coreg] 6.25 mg PO BID-W/MEALS #60 tab 06/04/24 [Rx] Follow up Appointment(s)/Referral(s): [facility], [NON-STAFF] - 1-2 Days (will call to set up appointment any questions please call agency ) José Miguel Strickland [Primary Care Provider] - 1-2 days Noah Null MD [STAFF PHYSICIAN] - 1 Week Discharge Disposition: HOME SELF-CARE
--- NOTE | 2024-06-04 15:59 | P.PN ---
Subjective Progress Note Date: 06/04/24 Principal diagnosis: Acute hypoxic respiratory failure secondary to acute pulmonary edema/congestive heart failure, acute on chronic systolic congestive heart failure Patient is a 78-year-old male with past medical history significant for diabetes mellitus, hyperlipidemia, hypertension, obesity, obstructive sleep apnea with home CPAP, renal CA with previous left-sided nephrectomy, former tobacco smoker. Of note, patient recently had a fall in October, sustained significant displaced fractures to his right lower extremity, s/p surgical repair, with external fixator. Patient presented to the emergency department yesterday with a chief complaint of progressively worsening shortness of breath over the last couple days. Does state that approximately 2 weeks ago he did have a "cold". Endorses cough, mostly nonproductive. Denies sick contacts. Denies fevers, chills, sputum production, chest pain, hemoptysis. These symptoms did initially improve, followed by significant shortness of breath over the last 2 days. Denies chest pain, heart palpitations, syncopal events, lower extremity swelling, orthopnea. He arrived in the emergency department in a state of respiratory distress, and was originally placed on BiPAP. Chest x-ray done admission consistent with pulmonary edema. Follow-up chest CT angio did not show any evidence of acute pulmonary embolism. There is cardiomegaly, small bilateral pleural effusions, right greater than left interlobular septal thick ening suggestive of pulmonary edema. Bibasilar compressive atelectasis. Mildly enlarged mediastinal lymph nodes. CBC unremarkable for leukocytosis. CMP on arrival: Sodium 137, potassium 4.4, chloride 108, serum bicarb 21, BUN 21, creatinine 1.2, glucose 111. LFTs unremarkable. Negative for influenza, RSV, COVID. EKG: Sinus rhythm, first degree AV block, RBBB pattern, minimal ST depressions in 2, 3, aVF as well as, chronic T wave inversions. Serial troponins elevated at 0.31, 0.24, and 0.29 respectively. NT proBNP elevated at 6600. Patient was placed on a Lasix infusion at 10 mg/h in the ED. Also, on a nitroglycerin infusion at 5 mcg/min, and heparin infusion per protocol. Patient is currently being evaluated in the intensive care unit. He remains on BiPAP with settings 14/7 and FiO2 50%. Respiratory rate is nontachypneic and nonlabored breathing pattern. Tidal volumes around 700-900 mL. An indwelling urinary catheter was placed, urine is slightly blood-tinged. A total of 1.7 L has been diuresed so far. Patient today on 06/02/2024, remains in the ICU, remains on diuretics however he is on IV Lasix instead of Lasix infusion, continues to do well, continues to diurese, patient had -8 L of fluid balance over the last 24 hours. Clinically the patient is doing great much better, he is on room air, not in any distress. Hence my plan is to continue to diurese however Lasix could be cut down further to 40 mg twice daily and Aldactone 25 mg daily. Clinically the patient had a dramatic improvement since admission, chest x-ray is showing significant improvement. WBC count is 7.4 hemoglobin 12.5 basic metabolic profile showed low potassium of 3.3, creatinine is up a bit at 1.39 today compared to 1.27 yesterday hence I believe cutting down the Lasix a bit would be quite helpful Seen today on 06/03/2024, patient is feeling much better, remains on room air, patient had significant improvement in his congestive heart failure since presentation. Echocardiogram showed severe LV dysfunction patient was seen by cardiology yesterday, and recommended increase Coreg, discontinued hydralazine, kept him on aspirin and Lipitor, also kept him on fark [employer] and reduced Aldactone to 25 mg daily also placed on Bumex 1 mg p.o. daily. Patient has been cleared basically for discharge by cardiology and he will need to have outpatient follow-up. Considering his severe LV dysfunction patient will likely require AICD placement on outpatient basis Patient was seen today on 06/04/2024, patient continues to do well on room air, not in any distress, apparently the patient was cleared by cardiology for discharge, and I have cleared the patient also yesterday. No cough no wheezing no shortness of breath. Objective - Vital Signs Vital signs: Vital Signs Temp 98.2 F 06/04/24 12:00 Pulse 78 06/04/24 13:27 Resp 18 06/04/24 13:27 BP 114/56 06/04/24 12:00 Pulse Ox 96 06/04/24 12:00 FiO2 21 06/01/24 23:00 Intake & Output 06/03/24 06/04/24 06/04/24 18:59 06:59 18:59 Intake Total 1140 Output Total 1500 1200 Balance -1500 -1200 1140 Weight 115.694 kg 114.5 kg Intake: Oral 1140 Output: Urine 1500 1200 Other: Voiding Method Urinal Urinal Urinal - Exam GENERAL EXAM: Alert, 78--year-old in no distress on room air HEAD: Normocephalic and atraumatic EYES: Normal reaction of pupils, equal size. NOSE: Clear with pink turbinates. THROAT: No erythema or exudates. NECK: No masses, no JVD. CHEST: No chest wall deformity. LUNGS: Clear throughout, no crackles rhonchi or wheezes CVS: S1 and S2 normal with no audible murmur, regular rhythm. No extra heart sounds ABDOMEN: No hepatosplenomegaly, active bowel sounds, no guarding or rigidity. SKIN: No rashes CENTRAL NERVOUS SYSTEM: Alert oriented x 3 no gross focal deficit EXTREMITIES: No clubbing edema or cyanosis - Labs CBC & Chem 7: 06/04/24 09:21 06/04/24 09:21 Labs: Abnormal Lab Results - Last 24 Hours (Table) 06/03/24 06/04/24 06/04/24 Range/Units 19:54 06:04 06:06 BUN (9-20) mg/dL Creatinine (0.66-1.25) mg/dL Glucose (74-99) mg/dL POC Glucose (mg/dL) 144 H 150 H 124 H (70-110) mg/dL Magnesium (1.6-2.3) mg/dL 06/04/24 Range/Units 09:21 BUN 28 H (9-20) mg/dL Creatinine 1.41 H (0.66-1.25) mg/dL Glucose 201 H (74-99) mg/dL POC Glucose (mg/dL) (70-110) mg/dL Magnesium 2.4 H (1.6-2.3) mg/dL Assessment and Plan Assessment: Pression: Acute hypoxemic respiratory failure, secondary to acute on chronic systolic congestive heart failure Elevated troponins, rule out non-ST elevation History of mild nonobstructive CAD, Heart catheterization done July, showing mostly mild nonobstructive disease involving the LAD, no significant stenosis or occlusive disease was reported. History of diabetes mellitus, type 2 History of hypertension History of hyperlipidemia Obesity, with a BMI of 36.6 kg/m History of obstructive sleep apnea, uses nasal CPAP at home History of renal cancer and previous nephrectomy Former tobacco dependence History of traumatic right tibia-fibula fracture, status post surgical repair, with external fixation Recommendation: Patient to continue diuretics Agree with discharge planning today if cleared by cardiology Patient may eventually require AICD placement considering his severe LV dysfunction Patient to use his on BiPAP at nighttime. Will continue to follow Time with Patient: Less than 30
== END 2024-06-04 16:14 | disposition home or self-care (01) | DRG 280 ==
LOC: EC 16:14 → 3SCARD 19:46 → 2SICU 21:20 → 3SCARD 06-04 02:15
PROVIDERS: ADMIT Hospitalist; ATTEND Hospitalist
PROC: 5A09457 Assistance with Respiratory Ventilation, 24-96 Consecutive Hours, Continuous Positive Airway Pressure (ICD-10-PCS; principal; 2024-05-31)
DX: I11.0 Hypertensive heart disease with heart failure (principal); I50.23 Acute on chronic systolic (congestive) heart failure; I21.A1 Myocardial infarction type 2; J96.01 Acute respiratory failure with hypoxia; N17.9 Acute kidney failure, unspecified; I42.9 Cardiomyopathy, unspecified; E11.9 Type 2 diabetes mellitus without complications; I25.10 Atherosclerotic heart disease of native coronary artery without angina pectoris; E66.9 Obesity, unspecified; E78.5 Hyperlipidemia, unspecified; I44.0 Atrioventricular block, first degree; I45.10 Unspecified right bundle-branch block; G47.33 Obstructive sleep apnea (adult) (pediatric); Z90.5 Acquired absence of kidney; Z68.34 Body mass index [BMI] 34.0-34.9, adult; Z79.82 Long term (current) use of aspirin; Z87.891 Personal history of nicotine dependence; Z68.36 Body mass index [BMI] 36.0-36.9, adult
CPT/HCPCS: 36415; 51702; 71045; 71046; 71275; 80048; 80053; 83735; 83880; 84132; 84484; 85025; 85027; 85379; 85610; 85730; 87636; 93005; 93306; 94640; 94660; 96365; 96366; 96367; 96368; 99291

== ENCOUNTER 2024-07-30 09:09 | Emergency (ER) | payer MEDICARE ==
--- NOTE | 2024-07-30 09:26 | ED ---
General Adult HPI - General Stated complaint: cardiac arrest Time Seen by Provider: 07/30/24 09:20 - History of Present Illness Initial comments: Dictation was produced using [employer] dictation software. please excuse any grammatical, word or spelling errors. Chief Complaint: 78-year-old male brought to the emergency department for unresponsiveness History of Present Illness: Patient is 78-year-old male history present illness obtained entirely from EMS. States that EMS was called for patient struggling with dyspnea for the last 3 to 4 days. He has history of external fixator to his right lower extremity. According EMS patient has suffered multiple bouts of infections complications due to right lower extremity issues. Upon evaluation EMS states that patient was talking to them however en route to the emergency department he became unresponsive. EMS noticed that his heart rate dropped into around the 20s and he was externally paced and ventilated. Patient's unresponsiveness occurred approximately 10 to 15 minutes prior to arrival. Unable to obtain ROS secondary to mental status - Related Data Home Medications Medication Instructions Recorded Confirmed Pravastatin Sodium [Pravachol] 10 mg PO HS 07/31/15 05/31/24 Cholecalciferol [Vitamin D3 (25 25 mcg PO DAILY 07/24/22 05/31/24 Mcg = 1000 Iu)] Gabapentin [Neurontin] 100 mg PO TID 07/24/22 05/31/24 HYDROcodone/APAP 10-325MG [[place] 1 tab PO Q8H PRN 07/24/22 05/31/24 10-325] Multivitamins, Thera [Multivitamin 1 tab PO DAILY 07/24/22 05/31/24 (formulary)] Zinc Gluconate [Zinc] 50 mg PO DAILY 07/24/22 05/31/24 Ascorbic Acid [Vitamin C] 1,000 mg PO DAILY 05/31/24 05/31/24 Aspirin EC [Ecotrin Low Dose] 81 mg PO DAILY 05/31/24 05/31/24 DULoxetine HCL [Cymbalta] 40 mg PO DAILY 05/31/24 05/31/24 Glucosam/Rizwan-Msm1/C/[place]/Bosw 1 tab PO DAILY 05/31/24 05/31/24 [Glucosamine-Chondroitin Tablet] Hydrocortisone Cream 1 applic TOPICAL BID 05/31/24 05/31/24 [Hydrocortisone 2.5% Cream] Magnesium Oxide [Magnesium] 500 mg PO DAILY 05/31/24 05/31/24 Montelukast [Singulair] 10 mg PO DAILY 05/31/24 05/31/24 Nystatin 100,000Unit/gm Cream 1 applic TOPICAL BID 05/31/24 05/31/24 [Mycostatin Cream] Prevagen 1 cap PO DAILY 05/31/24 05/31/24 Tamsulosin [Flomax] 0.4 mg PO HS 05/31/24 05/31/24 Previous Rx's Medication Instructions Recorded Bumetanide [BUMEX] 1 mg PO DAILY #30 tab 06/04/24 Dapagliflozin Propanediol [Farxiga] 10 mg PO DAILY #30 tab 06/04/24 Sacubitril/Valsartan [Entresto 24 1 each PO BID #60 tab 06/04/24 mg-26 mg Tablet] Spironolactone [Aldactone] 25 mg PO DAILY #30 tab 06/04/24 carvediloL [Coreg] 6.25 mg PO BID-W/MEALS #60 tab 06/04/24 Allergies Allergy/AdvReac Type Severity Reaction Status Date / Time No Known Allergies Allergy Verified 07/30/24 09:24 Review of Systems ROS Statement: Those systems with pertinent positive or pertinent negative responses have been documented in the HPI. ROS Other: All systems not noted in ROS Statement are negative. Past Medical History Past Medical History: Cancer, Diabetes Mellitus, Hyperlipidemia, Hypertension, Renal Disease, Sleep Apnea/CPAP/BIPAP Additional Past Medical History / Comment(s): hx. kidney cancer, uses cpap, History of Any Multi-Drug Resistant Organisms: None Reported Past Surgical History: Orthopedic Surgery Additional Past Surgical History / Comment(s): left side nephrectomy, repair fx. left ankle, repair fx. right leg Past Anesthesia/Blood Transfusion Reactions: No Reported Reaction Past Psychological History: No Psychological Hx Reported Smoking Status: Former smoker Past Alcohol Use History: Occasional Additional Past Alcohol Use History / Comment(s): quit smoking 2010, smoked on & off "years" Past Drug Use History: None Reported General Exam - General Exam Comments Initial Comments: PHYSICAL EXAM: General Impression: Mottled, cyanotic, pulseless, external fixator to the right lower extremity HEENT: Normocephalic atraumatic, extra-ocular movements intact, fixed and dilated pupils Cardiovascular: Pulseless Chest: Bilateral chest rise with BVM Abdomen: abdomen soft, non-distended, no organomegaly Musculoskeletal: Normal bulk and tone Neurological: Unresponsive Course - Reevaluation(s) Reevaluation #1: 07/30/24 09:25 Patient immediately excepted into the emergency department in trauma bay 1. We were all present prior to patient's arrival. Upon initial evaluation patient was found to be pulseless. CPR was initiated. equipment monitor phototypesetting showed asystole. Bedside echocardiogram showed no cardiac activity. Patient underwent approximately 12 minutes of CPR in our emergency department with no return of spontaneous circulation. Patient was down for approximately 20 minutes. Suspect that perhaps patient may have had cardiac arrest secondary to pulmonary embolism versus cardiomyopathy Reevaluation #2: 07/30/24 09:48 Granddaughter was in the family room and was notified of patient's passing. She reports that patient wanted to be DNR. States that he was on the phone talking this morning. Medical Decision Making - Medical Decision Making Was pt. sent in by a medical professional or institution (, PA, ELECTRICAL [employer] SPLICER, urgent care, hospital, or prison...) When possible be specific @ -No Did you speak to anyone other than the patient for history (EMS, parent, family, police, friend...)? What history was obtained from this source @ -See above Did you review nursing and triage notes (agree or disagree)? Why? @ -I reviewed and agree with nursing and triage notes Were old charts reviewed (outside hosp., previous admission, EMS record, old EKG, old radiological studies, urgent care reports/EKG's, prison records)? Report findings @ -No old charts were reviewed Differential Diagnosis (chest pain, altered mental status, abdominal pain women, abdominal pain men, vaginal bleeding, musculoskeletal, weakness, fever, dyspnea, syncope, headache, dizziness, GI bleed, back pain, seizure, CVA, palpatations, mental health)? @ -[place], PE, V-fib arrest EKG interpreted by me (3pts min.). @ -None done X-rays interpreted by me (1pt min.). @ -None done CT interpreted by me (1pt min.). @ -None done U/S interpreted by me (1pt. min.). @ -None done What testing was considered but not performed or refused? (CT, X-rays, U/S, labs)? Why? @ -None What meds were considered but not given or refused? Why? @ -None Was smoking cessation discussed for >3mins.? @ -No Were there social determinants of health that impacted care today? How? (Homelessness, low income, unemployed, alcoholism, drug addiction, transportation, low edu. Level, literacy, decrease access to med. care, correction, rehab)? @ -No Was there de-escalation of care discussed even if they declined (Discuss DNR or withdrawal of care, Hospice)? DNR status @ -CPR efforts were discontinued What co-morbidities impacted this encounter? (DM, HTN, Smoking, COPD, CAD, Cancer, CVA, ARF, Chemo, Hep., AIDS, mental health diagnosis, sleep apnea, morbid obesity)? @ -Cardiomyopathy Was patient admitted / discharged? Hospital course, mention meds given and route, prescriptions, significant lab abnormalities, going to OR and other pertinent info. @ -78-year-old male presents to the ER for cardiac arrest. Patient was 10 minutes unresponsive prior to ER arrival. He was asystole on the monitor. Patient was coded for approximately 10 minutes. He had complete standstill on bedside ultrasound of the heart. Cardiac activity not compatible with life. Granddaughter was notified of patient's passing. Pending discussion with medical supply technician Did you discuss the management of the patient with other professionals (professionals i.e. , PA, E[employer] SPLICER, lab, RT, psych nurse, web content & social media manager, edge polisher, teacher, chief credit officer, director case management)? Give summary @ -No Was critical care preformed (if so, how long)? @ -Yes, 33 minutes Undiagnosed new problem with uncertain prognosis? @ -No Drug Therapy requiring intensive monitoring for toxicity (Heparin, Nitro, Insulin, Cardizem)? @ -No Were any procedures done? @ -No Diagnosis/symptom? Acute, or Chronic, or Acute on Chronic? Uncomplicated (without systemic symptoms) or Complicated (systemic symptoms)? @ -Cardiac arrest, Side effects of treatment? @ -No Exacerbation, Progression, or Severe Exacerbation? @ -No Poses a threat to life or bodily function? How? (Chest pain, [place], [place], pneumonia, PE, COPD, DKA, ARF, appy, cholecystitis, CVA, Diverticulitis, Homicidal, Suicidal, threat to staff... and all critical care pts) @ -yes Disposition Clinical Impression: Cardiac arrest Disposition: Referrals: José Miguel Strickland [Primary Care Provider] - 1-2 days Time of Disposition: 09:50 Preliminary Cause of : cardiac arrest
== END 2024-07-30 15:10 | disposition expired ==
LOC: EC 09:09
DX: I46.9 Cardiac arrest, cause unspecified (principal); I42.9 Cardiomyopathy, unspecified; Z87.891 Personal history of nicotine dependence
CPT/HCPCS: 92950; 99285